=== PATIENT | female | born 1930 | race Caucasian/White ===

== ENCOUNTER → 2016-06-09 | Outpatient (CLI) | payer MEDICARE, OTHER ==
[~2016-06-09] MED LIST: ASPI81TA82 PO; AZIT250T74 PO; COZA50TA PO; LEVO75TA3 PO; LEXA10TA PO; PRAM.25 PO; PROT40TA PO
[2016-06-09 10:57] LABS: INDIRECT BILIRUBIN 0.2 MG/DL (0.0-0.8); TOTAL BILIRUBIN ADULT 0.3 MG/DL (0.2-1.0)
== END ==
LOC: CLAB 10:01
PROVIDERS: ATTEND Internal Medicine Gastroenterology
DX: R10.9 Unspecified abdominal pain (principal); R74.8 Abnormal levels of other serum enzymes
CPT/HCPCS: 36415; 80076; 82977

== ENCOUNTER 2017-03-17 12:31 | Observation (INO) | payer MEDICARE, OTHER ==
[2017-03-17 12:34] VITALS: BP 148/71; PULSE 66; RESP 22; TEMP 98.6; O2SAT 91
[2017-03-17 13:20] LABS: AUTOMATED NEUTROPHIL # 5.4 TH/MM3 (1.8-7.7); BASOPHIL # 0.1 TH/MM3 (0-0.2); BASOPHIL % 0.8 % (0.0-2.0); EOSINOPHIL # 0.2 TH/MM3 (0-0.4); EOSINOPHIL % 2.7 % (0.0-4.0); HEMATOCRIT 40.2 % (35.0-46.0); HEMO FLAGS DIFF FINAL; LYMPH % 13.2 % (9.0-44.0); LYMPHOCYTE # 0.9 TH/MM3 (1.0-4.8); MEAN CORPUSCULAR HEMOGLOBIN 29.6 PG (27.0-34.0); MEAN CORPUSCULAR HGB CONC 32.9 % (32.0-36.0); MONO % 4.2 % (0.0-8.0); NEUT % 79.1 % (16.0-70.0); PLATELET COUNT 215 TH/MM3 (150-450); RED BLOOD COUNT 4.47 MIL/MM3 (4.00-5.30); RED CELL DISTRIBUTION WIDTH 14.4 % (11.6-17.2); WHITE BLOOD COUNT 6.9 TH/MM3 (4.0-11.0)
[2017-03-17 13:28] LABS: APTT (PATIENT) 26.5 SEC (24.3-30.1); PROTHROMBIN TIME - PATIENT 10.4 SEC (9.8-11.6)
[2017-03-17 13:31] LABS: ANION GAP 5 MEQ/L (5-15); BICARBONATE 29.7 MEQ/L (21.0-32.0); BLOOD UREA NITROGEN 26 MG/DL (7-18); CHLORIDE 103 MEQ/L (98-107); GLOMERULAR FILTRATION RATE 38 ML/MIN (>89); POTASSIUM 4.2 MEQ/L (3.5-5.1); SODIUM (NA) 138 MEQ/L (136-145)
[2017-03-17 13:37] LABS: CREATINE KINASE 100 U/L (26-192)
[2017-03-17] MEDS ORDERED: methylPREDNISolone SOD SUCC 125 MG/2 ML VIAL IV PUSH ONE (13:45)
[2017-03-17] MEDS: RESP: ALBUTEROL 2.5 MG/IPRATROPIUM 0.5 MG NEB (SCH) INH (13:48)
[2017-03-17 13:54] VITALS: O2SAT 97
--- NOTE | 2017-03-17 14:11 | PD ---
HPI Chief Complaint: Respiratory Symptoms Time Seen by Provider: 13:12 Travel History International Travel<30 days: No Contact w/Intl Traveler<30days: No Traveled to known affect area: No History of Present Illness HPI 86yo F with PMH of COPD was sent in by Dr. Chaudhary for evaluation. Pt said she has been sob for a few weeks but getting worst overtime and worst today so she called her employment appeals examiner Dr. Chaudhary today. Pt uses 3L NC oxygen PRN at home but had to use it continuously and still felt sob today. Has been having chills and coughing up a lot of phlegm. Denies any fever, chest pain, n/v, abdominal pain, focal weakness or numbness. Denies any history of DVT, PE. PFSH Past Medical History Hx Anticoagulant Therapy: Yes (PLAVIX) Cancer: No Cardiovascular Problems: Yes (CAD; STENTS; HTN) High Cholesterol: Yes COPD: Yes Diabetes: No Diminished Hearing: No Endocrine: Yes Gastrointestinal Disorders: Yes (ACID REFLUX) Genitourinary: Yes (stress incontinence) Hepatitis: No Hiatal Hernia: Yes Hypertension: Yes Immune Disorder: Yes (rheumatoid) Musculoskeletal: Yes (rheumatoid ARTHRITIS) Neurologic: No Psychiatric: Yes Reproductive: No Respiratory: Yes (COPD) Thyroid Disease: Yes (HYPO) ?: Not Menopausal: Yes Past Surgical History Abdominal Surgery: Yes (partial colectomy due to diverticulitis) Body Medical Devices: x4 cardiac stents Cardiac Surgery: Yes (x 4 cardiac stents) Genitourinary Surgery: Yes (bladder tuck ) Pacemaker: No Other Surgery: Yes Social History Alcohol Use: No Tobacco Use: No Substance Use: No Allergies-Medications (Allergen,Severity, Reaction): Coded Allergies: simvastatin (Unverified Allergy, Severe, muscle pain, 11/11/16) Reported Meds & Prescriptions Reported Meds & Active Scripts Active Reported Potassium Chloride ER (Potassium Chloride) 20 Meq Tab 20 Meq PO DAILY Protonix (Pantoprazole Sodium) 40 Mg Tab 40 Mg PO DAILY Pravastatin 20 Mg Tab 20 Mg PO DAILY Prednisone 5 Mg Tab 5 Mg PO DAILY Mirapex (Pramipexole Dihydrochloride) 1 Mg Tab 1 Mg PO DAILY Cozaar (Losartan Potassium) 100 Mg Tab 100 Mg PO DAILY Plavix (Clopidogrel Bisulfate) 75 Mg Tab 75 Mg PO DAILY Coreg (Carvedilol) 3.125 Mg Tab 3.125 Mg PO BID Synthroid (Levothyroxine Sodium) 75 Mcg Tab 75 Mcg PO DAILY Zantac (Ranitidine HCl) 150 Mg Tab 150 Mg PO BID Norvasc (Amlodipine Besylate) 2.5 Mg Tab 2.5 Mg PO DAILY Zetia (Ezetimibe) 10 Mg Tab 10 Mg PO DAILY Lasix (Furosemide) 40 Mg Tab 40 Mg PO DAILY Review of Systems Except as stated in HPI: all other systems reviewed are Neg Physical Exam Narrative GENERAL: 86yo F in mild distress. SKIN: Focused skin assessment warm/dry. HEAD: Atraumatic. Normocephalic. EYES: Pupils equal and round. No scleral icterus. No injection or drainage. ENT: No nasal bleeding or discharge. Mucous membranes pink and moist. NECK: Trachea midline. No JVD. CARDIOVASCULAR: Regular rate and rhythm. No murmur appreciated. RESPIRATORY: No accessory muscle use. Clear to auscultation. Breath sounds equal bilaterally. GASTROINTESTINAL: Abdomen soft, non-tender, nondistended. MUSCULOSKELETAL: No obvious deformities. No clubbing. No cyanosis. Trace bilateral lower ext edema. NEUROLOGICAL: Awake and alert. No obvious cranial nerve deficits. Motor grossly within normal limits. Normal speech. PSYCHIATRIC: Appropriate mood and affect; insight and judgment normal. Data Data Last Documented VS Vital Signs Date Time Temp Pulse Resp B/P (MAP) Pulse Ox O2 Delivery O2 Flow Rate FiO2 03/17/17 13:54 97 Nasal Cannula 2.00 03/17/17 12:34 98.6 66 22 148/71 (96) Orders Orders Electrocardiogram (03/17/17 12:42) Basic Metabolic Panel (Bmp) (03/17/17 12:42) B-Type Natriuretic Peptide (03/17/17 12:42) Ckmb (Isoenzyme) Profile (03/17/17 12:42) Complete Blood Count With Diff (03/17/17 12:42) Magnesium (Mg) (03/17/17 12:42) Prothrombin Time / Inr (Pt) (03/17/17 12:42) Act Partial Throm Time (Ptt) (03/17/17 12:42) Troponin I (03/17/17 12:42) Lipase (03/17/17 12:42) Chest, Pa & Lat (03/17/17 12:42) Methylprednisolone So Succ Inj (Solumedr (03/17/17 13:45) Albuterol-Ipratropium Neb (Duoneb Neb) (03/17/17 13:45) Prednisone (Deltasone) (03/17/17 14:15) Blood Culture (03/17/17 15:33) Lactic Acid Sepsis Protocol (03/17/17 15:33) Ceftriaxone Inj (Rocephin Inj) (03/17/17 15:45) Azithromycin (Zithromax) (03/17/17 15:45) Place In Observation (03/17/17 ) Vital Signs (Adult) Q4H (03/17/17 16:03) Activity Oob With Assistance (03/17/17 16:03) First Line Production Supervisor / Telemetry .CONTINUOUS (03/17/17 16:03) Diet Heart Healthy (03/17/17 Dinner) Sodium Chloride 0.9% Flush (Ns Flush) (03/17/17 16:15) Sodium Chloride 0.9% Flush (Ns Flush) (03/17/17 21:00) Basic Metabolic Panel (Bmp) (03/18/17 06:00) Complete Blood Count With Diff (03/18/17 06:00) Pt Request For Service (03/17/17 16:03) Case Management Consult (03/17/17 16:03) Naloxone Inj (Narcan Inj) (03/17/17 16:15) Admit Order (Ed Use Only) (03/17/17 16:03) Labs Laboratory Tests Test 03/17/17 12:45 White Blood Count 6.9 TH/MM3 Red Blood Count 4.47 MIL/MM3 Hemoglobin 13.2 GM/DL Hematocrit 40.2 % Mean Corpuscular Volume 90.0 FL Mean Corpuscular Hemoglobin 29.6 PG Mean Corpuscular Hemoglobin Concent 32.9 % Red Cell Distribution Width 14.4 % Platelet Count 215 TH/MM3 Mean Platelet Volume 7.6 FL Neutrophils (%) (Auto) 79.1 % Lymphocytes (%) (Auto) 13.2 % Monocytes (%) (Auto) 4.2 % Eosinophils (%) (Auto) 2.7 % Basophils (%) (Auto) 0.8 % Neutrophils # (Auto) 5.4 TH/MM3 Lymphocytes # (Auto) 0.9 TH/MM3 Monocytes # (Auto) 0.3 TH/MM3 Eosinophils # (Auto) 0.2 TH/MM3 Basophils # (Auto) 0.1 TH/MM3 CBC Comment DIFF FINAL Differential Comment Prothrombin Time 10.4 SEC Prothromb Time International Ratio 1.0 RATIO Activated Partial Thromboplast Time 26.5 SEC Blood Urea Nitrogen 26 MG/DL Creatinine 1.32 MG/DL Random Glucose 155 MG/DL Calcium Level 9.5 MG/DL Magnesium Level 2.0 MG/DL Sodium Level 138 MEQ/L Potassium Level 4.2 MEQ/L Chloride Level 103 MEQ/L Carbon Dioxide Level 29.7 MEQ/L Anion Gap 5 MEQ/L Estimat Glomerular Filtration Rate 38 ML/MIN Total Creatine Kinase 100 U/L Troponin I LESS THAN 0.02 NG/ML B-Type Natriuretic Peptide 76 PG/ML Lipase 234 U/L [facility] Medical Decision Making Medical Screen Exam Complete: Yes Emergency Medical Condition: Yes Interpretation(s) EKG: NSR 64bpm. LAD. NO ST segment elevation or depression. Differential Diagnosis COPD exacerbation vs. Pneumonia vs. CHF Narrative Course 86yo F with sob for months but getting worst. Pt is saturating at 95% on 3L NC. Labs reviewed, no leukocytosis. BNP 76. BUN/creatinine elevated at 26/ 1.32 from baseline of 19/0.83. Troponin negative. CXR showed right lower lobe and right middle lobe consolidation and small right pleural effusion suspected. Pt felt a little better after steroids and duonebs but still a little tachypneic. Saturating fine on 3L NC. Blood cultures drawn, lactic acid added. Pt is 86yo with right lower and right middle lobe pneumonia and still does not feel back to normal as well as HILDA so will admit. Pt given ceftriaxone and azithromycin. Discussed with Dr. Jerry and accepted to her service. This is Dr. Chaudhary's patient and I spoke to him and he recommended a consultation to him so he can come see the patient and agrees with the plan. Diagnosis Primary Impression: Pneumonia Qualified Codes: J18.9 - Pneumonia, unspecified organism Admitting Information Admitting Physician Requests: Julita Pool DO Mar 17, 2017 14:11
[2017-03-17] MEDS ORDERED: ZANT150T2 PO (14:14)
[2017-03-17] MEDS ORDERED: PLAV75TA29 PO (14:14)
[2017-03-17] MEDS ORDERED: CARV3.125 PO (14:14)
[2017-03-17] MEDS ORDERED: POTA-163 PO (14:14)
[2017-03-17] MEDS ORDERED: PRAV20TA2 PO (14:14)
[2017-03-17] MEDS ORDERED: PRAM1 PO (14:14)
[2017-03-17] MEDS ORDERED: EZET10 PO (14:14)
[2017-03-17] MEDS ORDERED: NORV2.5T PO (14:14)
[2017-03-17] MEDS ORDERED: COZA100T PO (14:14)
[2017-03-17] MEDS ORDERED: FURO1TAB60 PO (14:14)
[2017-03-17] MEDS ORDERED: LEVO.075 PO (14:14)
[2017-03-17] MEDS ORDERED: PRED5TAB PO (14:14)
[2017-03-17] MEDS ORDERED: PROT40TA PO (14:14)
[2017-03-17] MEDS ORDERED: predniSONE 50 MG TAB PO ONE (14:15)
--- NOTE | 2017-03-17 14:50 | RADRPT ---
EXAM DATE/TIME: 03/17/2017 13:19 [facility] COMPARISON: CHEST SINGLE AP, April 04, 2013, 12:28. INDICATIONS : Chest pain. MEDICAL HISTORY : Chronic obstructive pulmonary disease. SURGICAL HISTORY : None. ENCOUNTER: Initial ACUITY: 1 week PAIN SCORE: 7/10 LOCATION: Bilateral chest FINDINGS: PA and lateral views of the chest show the heart to be normal in size and shape. Areas of consolidati on are seen involving the right lower lobe and right midlung. Small right effusion suspected. No effu joshua seen on the left. A degenerative spine. CONCLUSION: Right lower lobe infiltrate with tiny right effusion. Emilio Godoy Jr., MD on March 17, 2017 at 14:46 Board Certified Radiologist. This report was verified electronically.
[2017-03-17] MEDS ORDERED: cefTRIAXone INJ 1,000 MG in SODIUM CHLORIDE 0.9% INJ 100 ML IV ONE (15:45)
[2017-03-17] MEDS ORDERED: AZITHROMYCIN 250 MG TAB PO ONE (15:45)
[2017-03-17] MEDS ORDERED: RESP: ALBUTEROL 2.5 MG/IPRATROPIUM 0.5 MG NEB (PRN) NEB (16:15)
[2017-03-17] MEDS ORDERED: SODIUM CHLORIDE 0.9% FLUSH 10 ML FLUSH IV FLUSH PRN (16:15)
[2017-03-17] MEDS ORDERED: NALOXONE HCL 0.4 MG/ML AMP IV PUSH PRN (16:15)
[2017-03-17] MEDS ORDERED: LEVOFLOXACIN 750 MG PREMIX INJ 150 ML IV SCH (17:00)
[2017-03-17] MEDS ORDERED: PILL SPLITTER OTHER PRN (17:30)
--- NOTE | 2017-03-17 17:41 | MB ---
cc: Paulina HARRINGTON M.D. DATE OF CONSULTATION 03/17/2017 HISTORY Ms. Martinez is an 86-year-old white female whom I know from my outpatient office. I have followed her with chronic interstitial lung disease for a number of years. She has really been very stable although very gradually progressing with more debility partly related to dyspnea but also related to significant degenerative arthritis which has slowed her down and the last visit in the office was stable. She has had fairly recent scans and pulmonary functions which revealed restrictive disease but not significantly progressed. She called the office today though with cough, increasing shortness of breath, congestion, really felt miserable and I was concerned that she may have pneumonia, so I brought her into the emergency room. Her chest x-ray does in fact reveal a right mid to lower lobe infiltrate with a small effusion. O2 saturations were in the low 90s. She was afebrile. White count was 6900 but her BUN and creatinine are both bumped and she is fairly debilitated. She is being admitted for initial therapy. PAST MEDICAL HISTORY 1. She does have a cardiovascular history with coronary artery disease and prior stents. 2. She has a history of hypertension. 3. Acid reflux disease which has not been very symptomatic recently. 4. Rheumatoid arthritis which has gradually progressed along with degenerative arthritis. She is managed as an outpatient by a pain specialist. 5. Hypothyroidism. 6. Partial colectomy due to diverticulitis. 7. Multiple cardiac stents. 8. Bladder neck repair in the past. SOCIAL HISTORY She lives alone. She manages her own affairs. She does not smoke. Rarely drinks alcohol. She does have family in [place], in fact she was planning on spending the [place] holidays with her daughter there. ALLERGIES SIMVASTATIN. MEDICATIONS Reviewed in the EMR. REVIEW OF SYSTEMS She has had cough, congestion but no chest pain or hemoptysis. Feeling more debilitated, unable to manage things at home alone with this most recent illness. No shaking chills. No vomiting. No abdominal pain. No recent change in bowel habits. No increased edema in her legs. PHYSICAL EXAMINATION GENERAL: The patient is awake, alert, sitting upright, comfortable. VITAL SIGNS: Afebrile, blood pressure 140/70, pulse 70, respirations 18-22, room air saturation 91, 97% on 2 liters. HEENT: Sclerae anicteric. Mucous membranes are a little dry. NECK: The neck veins are flat. CHEST: Congested with basilar rales right greater than left. No wheezing. Regular rhythm. No harsh murmur. ABDOMEN: Soft, a little overweight. EXTREMITIES: No peripheral edema or calf tenderness. No cyanosis. DISCUSSION Mrs. Martinez presents with chronic interstitial disease, really no significant underlying COPD but clearly has new right mid to lower lung infiltrate. She is being admitted. Antibiotics have been ordered. We will try to collect sputum. Blood cultures have been done. We will give her aerosol treatments only as needed and a short course of IV steroids for the inflammatory response. Further diagnostic and/or therapeutic intervention will depend on her ongoing clinical response. R. MD VELMA Hauser/KK /5:08 PM /5:23 PM
[2017-03-17] MEDS: methylPREDNISolone SOD SUCC 40 MG/1 ML VIAL IV PUSH SCH ×2 (17:56→23:47)
[2017-03-17 18:03] VITALS: BP 138/70; PULSE 82; RESP 20; O2SAT 97
--- NOTE | 2017-03-17 18:23 | HHI.HP ---
[facility] Jamie Patterson MD Admission Diagnosis Right middle and lower lobe pneumonia Diagnoses: Travel History International Travel<30 Days: No Contact w/Intl Traveler <30 Da: No Traveled to Known Affected Are: No History of Present Illness shortness of breath stated no cough but then had mucus no fever, but was having hot and cold chills mucus plain white color symptoms a week no nasuea/ vomiting . no urinary symptoms have been constipated - comes and goes and improve with laxatives hx of copd on home oxygen 3L today symptoms was so bad that she has been using it more often and all day long Review of Systems Except as stated in HPI: all other systems reviewed are Neg Past Family Social History Past Medical History htn border line dm copd cad- 4 stents,. TN hypothryoidism Past Surgical History part of intestine removed for diverticulosis tonsilectomy Allergies: Coded Allergies: simvastatin (Unverified Allergy, Severe, muscle pain, 11/11/16) Family History breast cancer- both sisters Social History quit smoking 40yrs ago no etoh abuse no drugs lives by herself, still driving Physical Exam Vital Signs Vital Signs Date Time Temp Pulse Resp B/P (MAP) Pulse Ox O2 Delivery O2 Flow Rate FiO2 03/17/17 18:03 82 20 138/70 (92) 97 Nasal Cannula 3.00 03/17/17 13:54 97 Nasal Cannula 2.00 03/17/17 12:34 98.6 66 22 148/71 (96) 91 Room Air Physical Exam GENERAL: This is a well-nourished, well-developed patient, in no apparent distress. SKIN: No rashes, ecchymoses or lesions. Cool and dry. HEAD: Atraumatic. Normocephalic. No temporal or scalp tenderness. EYES: Pupils equal round and reactive. Extraocular motions intact. No scleral icterus. No injection or drainage. ENT: Nose without bleeding, purulent drainage or septal hematoma. Throat without erythema, tonsillar hypertrophy or exudate. Uvula midline. Airway patent. NECK: Trachea midline. No JVD or lymphadenopathy. Supple, nontender, no meningeal signs. CARDIOVASCULAR: Regular rate and rhythm without murmurs, gallops, or rubs. RESPIRATORY: Clear to auscultation. Breath sounds equal bilaterally. No wheezes , rales, or rhonchi. GASTROINTESTINAL: Abdomen soft, non-tender, nondistended. No hepato-splenomegaly , or palpable masses. No guarding. MUSCULOSKELETAL: Extremities without clubbing, cyanosis, or edema. No joint tenderness, effusion, or edema noted. No calf tenderness. Negative Homans sign bilaterally. NEUROLOGICAL: Awake and alert. Cranial nerves II through XII intact. Motor and sensory grossly within normal limits. Five out of 5 muscle strength in all muscle groups. Normal speech. Laboratory Laboratory Tests Test 03/17/17 12:45 03/17/17 16:11 White Blood Count 6.9 Red Blood Count 4.47 Hemoglobin 13.2 Hematocrit 40.2 Mean Corpuscular Volume 90.0 Mean Corpuscular Hemoglobin 29.6 Mean Corpuscular Hemoglobin Concent 32.9 Red Cell Distribution Width 14.4 Platelet Count 215 Mean Platelet Volume 7.6 Neutrophils (%) (Auto) 79.1 Lymphocytes (%) (Auto) 13.2 Monocytes (%) (Auto) 4.2 Eosinophils (%) (Auto) 2.7 Basophils (%) (Auto) 0.8 Neutrophils # (Auto) 5.4 Lymphocytes # (Auto) 0.9 Monocytes # (Auto) 0.3 Eosinophils # (Auto) 0.2 Basophils # (Auto) 0.1 CBC Comment DIFF FINAL Differential Comment Prothrombin Time 10.4 Prothromb Time International Ratio 1.0 Activated Partial Thromboplast Time 26.5 Blood Urea Nitrogen 26 Creatinine 1.32 Random Glucose 155 Calcium Level 9.5 Magnesium Level 2.0 Sodium Level 138 Potassium Level 4.2 Chloride Level 103 Carbon Dioxide Level 29.7 Anion Gap 5 Estimat Glomerular Filtration Rate 38 Total Creatine Kinase 100 Troponin I LESS THAN 0.02 B-Type Natriuretic Peptide 76 Lipase 234 Lactic Acid Level 1.1 Date/Time Source Procedure Growth Status 03/17/17 16:15 Blood Peripheral Aerobic Blood Culture Pending Received 03/17/17 16:15 Blood Peripheral Anaerobic Blood Culture Pending Received Result Diagram: 03/17/17 1245 03/17/17 1245 Caprini VTE Risk Assessment Caprini Risk Assessment Model Point Value = 1 Point Value = 2 Point Value = 3 Point Value = 5 Age 41-60 Minor surgery BMI > 25 kg/m2 Swollen legs Varicose veins or History of unexplained or recurrent spontaneous Oral contraceptives or hormone replacement Sepsis (< 1 month) Serious lung disease, including pneumonia (< 1 month) Abnormal pulmonary function Acute myocardial infarction Congestive heart failure (< 1 month) History of inflammatory bowel disease Medical patient at bed rest Age 61-74 Arthroscopic surgery Major open surgery (> 45 min) Laparoscopic surgery (> 45 min) Malignancy Confined to bed (> 72 hours) Immobilizing plaster cast Central venous access Age >= 75 History of VTE Family history of VTE Factor V Leiden Prothrombin [id number] Lupus anticoagulant Anticardiolipin antibodies Elevated serum homocysteine Heparin-induced thrombocytopenia Other congenital or acquired thrombophilia Stroke (< 1 month) Elective arthroplasty Hip, pelvis, or leg fracture Acute spinal cord injury (< 1 month) Prophylaxis Regimen Total Risk Factor Score Risk Level Prophylaxis Regimen 0-1 Low Early ambulation 2 Moderate Order ONE of the following: *Sequential Compression Device (SCD) *Heparin 5000 units SQ BID 3-4 Higher Order ONE of the following medications: *Heparin 5000 units SQ TID *Enoxaparin/Lovenox 40 mg SQ daily (WT < 150 kg, CrCl > 30 mL/min) *Enoxaparin/Lovenox 30 mg SQ daily (WT < 150 kg, CrCl > 10-29 mL/min) *Enoxaparin/Lovenox 30 mg SQ BID (WT < 150 kg, CrCl > 30 mL/min) AND/OR *Sequential Compression Device (SCD) 5 or more Highest Order ONE of the following medications: *Heparin 5000 units SQ TID (Preferred with Epidurals) *Enoxaparin/Lovenox 40 mg SQ daily (WT < 150 kg, CrCl > 30 mL/min) *Enoxaparin/Lovenox 30 mg SQ daily (WT < 150 kg, CrCl > 10-29 mL/min) *Enoxaparin/Lovenox 30 mg SQ BID (WT < 150 kg, CrCl > 30 mL/min) AND *Sequential Compression Device (SCD) Assessment and Plan Assessment and Plan interstitial lung disease pneumonia home oxygen dependence respiratory distress secondary to pneumonia nebs prn steroids short course then to taper levofloxacin iv Paula Jerry MD Mar 17, 2017 18:23
[2017-03-17 20:00] VITALS: BP 144/65; PULSE 66; RESP 22; TEMP 96.1; O2SAT 94
[2017-03-17] MEDS: FAMOTIDINE 20 MG TAB PO SCH (20:34)
[2017-03-17] MEDS: CARVEDILOL 3.125 MG TAB PO SCH (20:34)
[2017-03-17] MEDS: SODIUM CHLORIDE 0.9% FLUSH 10 ML FLUSH IV FLUSH SCH (20:35)
[2017-03-17] MEDS: RESP: ALBUTEROL 2.5 MG/IPRATROPIUM 0.5 MG NEB (SCH) NEB (20:36)
[2017-03-17 20:40] VITALS: O2SAT 94
--- NOTE | 2017-03-17 20:58 | EKG ---
Date Performed: 03/17/2017 Time Performed: 12:52:22 PTAGE: 86 years EKG: Sinus rhythm POSSIBLE LEFT ATRIAL ENLARGEMENT BORDERLINE LEFT AXIS DEVIATION INCOMPLETE RIGHT BUNDLE BRANCH BLOCK NONSPECIFIC T-WAVE ABNORMALITY BORDERLINE ECG Compared to prior electrocardiogram, Nonspecific T wav e changes are now present . PREVIOUS TRACING : 03/31/2013 11.51 DOCTOR: Lan Yates Interpretating Date/Time 03/17/2017 20:57:18
[2017-03-17] MEDS ORDERED: FAMOTIDINE 20 MG TAB PO SCH (21:00)
[2017-03-18] VITALS (11 sets, daily range): BP systolic 124–161; BP diastolic 56–71; PULSE 57–83; RESP 16–22; TEMP 96–97.6; O2SAT 93–99
[2017-03-18] MEDS: RESP: ALBUTEROL 2.5 MG/IPRATROPIUM 0.5 MG NEB (SCH) NEB ×4 (03:43→23:41)
[2017-03-18] MEDS: methylPREDNISolone SOD SUCC 40 MG/1 ML VIAL IV PUSH SCH ×3 (05:44→20:21)
[2017-03-18] MEDS: LEVOTHYROXINE SODIUM 75 MCG TAB PO SCH (08:25)
[2017-03-18] MEDS: amLODIPine BESYLATE 5 MG TAB PO SCH (08:25)
[2017-03-18] MEDS: CARVEDILOL 3.125 MG TAB PO SCH ×2 (08:25→20:21)
[2017-03-18] MEDS: PRAMIPEXOLE DIHYDROCHLORIDE 1 MG TAB PO SCH (08:26)
[2017-03-18] MEDS: EZETIMIBE 10 MG TAB PO SCH (08:26)
[2017-03-18] MEDS: CLOPIDOGREL 75 MG TAB PO SCH (08:26)
[2017-03-18] MEDS: LOSARTAN 50 MG TAB PO SCH (08:26)
[2017-03-18] MEDS: PRAVASTATIN SOD 20 MG TAB PO SCH (08:26)
[2017-03-18] MEDS: POTASSIUM CHLORIDE 20 MEQ CONTROLLED RELEASE TAB PO SCH (08:26)
[2017-03-18] MEDS: FAMOTIDINE 20 MG TAB PO SCH (08:26)
[2017-03-18] MEDS: PANTOPRAZOLE SOD 40 MG DELAYED RELEASE TAB PO SCH (08:27)
[2017-03-18] MEDS: SODIUM CHLORIDE 0.9% FLUSH 10 ML FLUSH IV FLUSH SCH ×2 (08:28→21:00)
[2017-03-18] MEDS ORDERED: FUROSEMIDE 40 MG TAB PO SCH (09:00)
[2017-03-18] MEDS ORDERED: predniSONE 5 MG TAB PO SCH (09:00)
[2017-03-18 12:15] LABS: AUTOMATED NEUTROPHIL # 5.1 TH/MM3 (1.8-7.7); HEMO FLAGS DIFF FINAL; LYMPH % 11.9 % (9.0-44.0); LYMPHOCYTE # 0.7 TH/MM3 (1.0-4.8); MEAN CORPUSCULAR HEMOGLOBIN 30.1 PG (27.0-34.0); MONO % 1.7 % (0.0-8.0); NEUT % 86.4 % (16.0-70.0); PLATELET COUNT 215 TH/MM3 (150-450); RED BLOOD COUNT 4.07 MIL/MM3 (4.00-5.30); RED CELL DISTRIBUTION WIDTH 14.4 % (11.6-17.2); WHITE BLOOD COUNT 5.9 TH/MM3 (4.0-11.0)
--- NOTE | 2017-03-18 12:39 | HHI.PR ---
Subjective Remarks The patient was resting comfortably in a chair. She had questions about her lung disease. She said she had some swelling in her lower extremities. She said she worked with physical therapy. Objective Vitals Vital Signs Date Time Temp Pulse Resp B/P (MAP) Pulse Ox O2 Delivery O2 Flow Rate FiO2 03/18/17 09:41 97 Nasal Cannula 3.00 03/18/17 08:00 97.6 63 16 143/70 (94) 96 03/18/17 06:00 96.0 64 20 160/71 (100) 94 03/18/17 00:00 97.5 57 20 124/56 (78) 93 03/17/17 20:40 94 Nasal Cannula 3.00 03/17/17 20:00 96.1 66 22 144/65 (91) 94 03/17/17 19:02 03/17/17 18:03 82 20 138/70 (92) 97 Nasal Cannula 3.00 03/17/17 13:54 97 Nasal Cannula 2.00 I/O 03/17/17 03/17/17 03/17/17 03/18/17 03/18/17 03/18/17 07:00 15:00 23:00 07:00 15:00 23:00 Intake Total 100 ml 360 ml Output Total 350 ml Balance 100 ml 10 ml Intake Oral 360 ml IV Total 100 ml Output Urine Total 350 ml # Bowel Movements 0 Result Diagram: 03/18/17 1037 03/17/17 1245 Imaging Last Impressions Chest X-Ray 03/17/17 1242 Signed Impressions: Service Date/Time: Friday, March 17, 2017 13:19 - CONCLUSION: Right lower lobe infiltrate with tiny right effusion. Emilio oGdoy Jr., MD Objective Remarks GENERAL: This is a well-nourished, well-developed patient, in no apparent distress. SKIN: No rashes, ecchymoses or lesions. Cool and dry. HEAD: Atraumatic. Normocephalic. No temporal or scalp tenderness. EYES: Pupils equal round and reactive. Extraocular motions intact. No scleral icterus. No injection or drainage. ENT: Nose without bleeding, purulent drainage or septal hematoma. Throat without erythema, tonsillar hypertrophy or exudate. Uvula midline. Airway patent. NECK: Trachea midline. No JVD or lymphadenopathy. Supple, nontender, no meningeal signs. CARDIOVASCULAR: Regular rate and rhythm without murmurs, gallops, or rubs. RESPIRATORY: Clear to auscultation. Breath sounds equal bilaterally. No wheezes , rales, or rhonchi. GASTROINTESTINAL: Abdomen soft, non-tender, nondistended. No hepato-splenomegaly , or palpable masses. No guarding. MUSCULOSKELETAL: Extremities without clubbing, cyanosis, or edema. No joint tenderness, effusion, or edema noted. NEUROLOGICAL: Awake and alert. Cranial nerves II through XII intact. Motor and sensory grossly within normal limits. Five out of 5 muscle strength in all muscle groups. Normal speech. PSYCH: Mood and affect appropriate. Medications and IVs Current Medications Medications (Trade) Dose Ordered Sig/Sierra Route Start Time Stop Time Status Last Admin (NS Flush) 2 ml UNSCH PRN IV FLUSH 03/17/17 16:15 (NS Flush) 2 ml BID IV FLUSH 03/17/17 21:00 03/18/17 08:28 (Narcan Inj) 0.4 mg UNSCH PRN IV PUSH 03/17/17 16:15 (Duoneb Neb) 1 ampule Q6HR NEB NEB 03/17/17 22:00 03/18/17 09:40 (Duoneb Neb) 1 ampule Q2HR NEB PRN NEB 03/17/17 16:15 (SoluMEDROL INJ) 40 mg Q6HR IV PUSH 03/17/17 18:00 03/18/17 12:20 Levofloxacin/ Dextrose 150 ml @ 100 mls/hr Q24H IV 03/17/17 17:00 03/17/17 17:55 (Pill Splitter) 1 ea UNSCH PRN OTHER 03/17/17 17:30 (Norvasc) 2.5 mg DAILY PO 03/18/17 09:00 03/18/17 08:25 (Coreg) 3.125 mg BID PO 03/17/17 21:00 03/18/17 08:25 (Plavix) 75 mg DAILY PO 03/18/17 09:00 03/18/17 08:26 (Zetia) 10 mg DAILY PO 03/18/17 09:00 03/18/17 08:26 (Lasix) 40 mg DAILY PO 03/18/17 09:00 03/18/17 08:26 (Synthroid) 75 mcg DAILY PO 03/18/17 09:00 03/18/17 08:25 (Cozaar) 100 mg DAILY PO 03/18/17 09:00 03/18/17 08:26 (Protonix) 40 mg DAILY PO 03/18/17 09:00 (KCl) 20 meq DAILY PO 03/18/17 09:00 03/18/17 08:26 (Mirapex) 1 mg DAILY PO 03/18/17 09:00 03/18/17 08:26 (Pravachol) 20 mg DAILY PO 03/18/17 09:00 03/18/17 08:26 (Pepcid) 20 mg DAILY PO 03/17/17 21:00 03/18/17 08:26 A/P Assessment and Plan Interstitial lung disease/ Pneumonia - the pt has home oxygen dependence. - continue antibiotics (Levaquin IV). - encourage ambulation. - IS. - nebs prn - steroids short course then to taper. Acute renal failure Likely s/t Lasix. - IVFs and monitor. - hold Lasix and ARB. DM Borderline. - insulin sliding scale. - wean steroids. HTN BP varies. - holding Lasix and ARB as above. - clonidine as needed. - resume other home meds. Discharge Planning Anticipate d/c home in 1-2 days Michael Valenzuela DO Mar 18, 2017 12:39
[2017-03-18 12:45] LABS: BICARBONATE 28.4 MEQ/L (21.0-32.0); POTASSIUM 3.9 MEQ/L (3.5-5.1)
[2017-03-18] MEDS ORDERED: cloNIDine HCL 0.1 MG TAB PO PRN (13:15)
[2017-03-18] MEDS ORDERED: DEXTROSE 50% IN WATER 50 ML VIAL(D50) IV PUSH PRN (14:45)
[2017-03-18] MEDS ORDERED: GLUCAGON 1 MG/ML VIAL OTHER PRN (14:45)
[2017-03-18] MEDS: HEPARIN SODIUM - SQ 10,000 UNITS/ML VIAL SQ SCH ×2 (15:45→22:00)
[2017-03-18] MEDS: SODIUM CHLOR 0.9% 1000 ML INJ 1,000 ML IV SCH (15:45)
[2017-03-18] MEDS: INSULIN ASPART SUPPLEMENTAL SCALE SQ SCH ×2 (17:53→20:39)
--- NOTE | 2017-03-18 18:18 | HHI.PR ---
Subjective Remarks alert no sob appetite good Objective Vital Signs Date Time Temp Pulse Resp B/P (MAP) Pulse Ox O2 Delivery O2 Flow Rate FiO2 03/18/17 18:00 96.5 68 16 161/65 (97) 93 03/18/17 12:00 96.6 64 16 132/56 (81) 93 03/18/17 09:41 97 Nasal Cannula 3.00 03/18/17 08:00 97.6 63 16 143/70 (94) 96 03/18/17 06:00 96.0 64 20 160/71 (100) 94 03/18/17 00:00 97.5 57 20 124/56 (78) 93 03/17/17 20:40 94 Nasal Cannula 3.00 03/17/17 20:00 96.1 66 22 144/65 (91) 94 03/17/17 19:02 I/O 03/17/17 03/17/17 03/17/17 03/18/17 03/18/17 03/18/17 07:00 15:00 23:00 07:00 15:00 23:00 Intake Total 100 ml 360 ml 480 ml Output Total 350 ml 450 ml Balance 100 ml 10 ml 30 ml Intake Oral 360 ml 480 ml IV Total 100 ml Output Urine Total 350 ml 450 ml # Bowel Movements 0 1 Result Diagram: 03/18/17 1037 03/18/17 1037 Objective Remarks GENERAL: SKIN: Warm and dry. HEAD: Atraumatic. Normocephalic. EYES: Pupils equal and round. No scleral icterus. No injection or drainage. ENT: No nasal bleeding or discharge. Mucous membranes pink and moist. NECK: Trachea midline. No JVD. CARDIOVASCULAR: Regular rate and rhythm. RESPIRATORY: No accessory muscle use. Clear to auscultation. Breath sounds equal bilaterally. GASTROINTESTINAL: Abdomen soft, non-tender, nondistended. Hepatic and splenic margins not palpable. MUSCULOSKELETAL: Extremities without clubbing, cyanosis, or edema. No obvious deformities. NEUROLOGICAL: Awake and alert. No obvious cranial nerve deficits. Motor grossly within normal limits. Five out of 5 muscle strength in the arms and legs. Normal speech. PSYCHIATRIC: Appropriate mood and affect; insight and judgment normal. Assessment and Plan Assessment and Plan RML PNA PULM FIBROSIS RESPIRATORY FAILURE ON HOME O2 PLAN O2 ANTIBIOTICS F/U CXKiah Garcia MD Mar 18, 2017 18:18
--- NOTE | 2017-03-18 23:34 | RADRPT ---
EXAM DATE/TIME: 03/18/2017 20:50 [facility] COMPARISON: CHEST SINGLE AP, April 04, 2013, 12:28. CHEST PA & LAT, March 17, 2017, 13:19. INDICATIONS : Pneumonia, cough. MEDICAL HISTORY : None. SURGICAL HISTORY : None. ENCOUNTER: Initial ACUITY: 3 days PAIN SCORE: 0/10 LOCATION: Bilateral chest FINDINGS: Patchy infiltrates are seen scattered throughout the right lung, very similar to prior chest x-ray . There are also some central infiltrates in the left lung which have similar distribution to prior exam. Left hemidiaphragm is well delineated. There is blunting of the right costophrenic angl e, similar to prior. The heart is upper limits normal size for AP technique. CONCLUSION: Persistent patchy infiltrates in both lungs, right greater than left and probable associated right pl eural effusion. Emilio Louise MD on March 18, 2017 at 23:30 Board Certified Radiologist. This report was verified electronically.
[2017-03-19] VITALS (7 sets, daily range): BP systolic 124–146; BP diastolic 63–70; PULSE 54–76; RESP 16–22; TEMP 96.5–97.1; O2SAT 94–96
[2017-03-19] MEDS ORDERED: diphenhydrAMINE HCL 25 MG CAP PO ONE
[2017-03-19] MEDS: guaiFENesin E.R. 600 MG TAB PO SCH ×3 (00:20→22:45)
[2017-03-19] MEDS: SODIUM CHLOR 0.9% 1000 ML INJ 1,000 ML IV SCH (02:35)
[2017-03-19] MEDS: RESP: ALBUTEROL 2.5 MG/IPRATROPIUM 0.5 MG NEB (SCH) NEB ×4 (03:08→21:42)
[2017-03-19] MEDS: HEPARIN SODIUM - SQ 10,000 UNITS/ML VIAL SQ SCH ×3 (06:30→23:09)
[2017-03-19] MEDS: methylPREDNISolone SOD SUCC 40 MG/1 ML VIAL IV PUSH SCH (08:16)
[2017-03-19] MEDS: amLODIPine BESYLATE 5 MG TAB PO SCH (08:16)
[2017-03-19] MEDS: PRAVASTATIN SOD 20 MG TAB PO SCH (08:16)
[2017-03-19] MEDS: PANTOPRAZOLE SOD 40 MG DELAYED RELEASE TAB PO SCH (08:17)
[2017-03-19] MEDS: FAMOTIDINE 20 MG TAB PO SCH (08:17)
[2017-03-19] MEDS: EZETIMIBE 10 MG TAB PO SCH (08:18)
[2017-03-19] MEDS: LOSARTAN 50 MG TAB PO SCH (08:18)
[2017-03-19] MEDS: PRAMIPEXOLE DIHYDROCHLORIDE 1 MG TAB PO SCH (08:18)
[2017-03-19] MEDS: CARVEDILOL 3.125 MG TAB PO SCH ×2 (08:18→22:45)
[2017-03-19] MEDS: SODIUM CHLORIDE 0.9% FLUSH 10 ML FLUSH IV FLUSH SCH ×2 (08:18→21:00)
[2017-03-19] MEDS: POTASSIUM CHLORIDE 20 MEQ CONTROLLED RELEASE TAB PO SCH (08:18)
[2017-03-19] MEDS: INSULIN ASPART SUPPLEMENTAL SCALE SQ SCH ×4 (08:19→23:10)
[2017-03-19] MEDS: CLOPIDOGREL 75 MG TAB PO SCH (08:19)
[2017-03-19] MEDS: LEVOTHYROXINE SODIUM 75 MCG TAB PO SCH (08:22)
[2017-03-19] MEDS ORDERED: BENZOCAINE 6 MG/MENTHOL 10 MG LOZENGE BUCCAL PRN (11:30)
[2017-03-19] MEDS ORDERED: PHENOL 1.4% SOLN 180 ML BTL OROPHARYNG PRN (11:30)
--- NOTE | 2017-03-19 11:39 | HHI.PR ---
Subjective Remarks The patient was complaining of a sore throat on the right side. She said she thought it was secondary to mucus. She was wondering about when she can go home. No other acute complaints. Discussed with nursing at the bedside. Objective Vitals Vital Signs Date Time Temp Pulse Resp B/P (MAP) Pulse Ox O2 Delivery O2 Flow Rate FiO2 03/19/17 09:56 95 Nasal Cannula 3.00 03/19/17 08:00 97.1 65 16 124/64 (84) 94 03/19/17 00:00 96.9 66 22 146/63 (90) 94 03/18/17 23:41 99 Nasal Cannula 3.00 03/18/17 20:40 83 03/18/17 20:00 96.6 79 22 139/65 (89) 95 03/18/17 18:00 96.5 68 16 161/65 (97) 93 03/18/17 15:49 75 03/18/17 12:00 96.6 64 16 132/56 (81) 93 03/18/17 11:50 63 I/O 03/18/17 03/18/17 03/18/17 03/19/17 03/19/17 03/19/17 07:00 15:00 23:00 07:00 15:00 23:00 Intake Total 360 ml 480 ml 360 ml Output Total 350 ml 450 ml 175 ml Balance 10 ml 30 ml 185 ml Intake Oral 360 ml 480 ml 360 ml Output Urine Total 350 ml 450 ml 175 ml # Voids 1 # Bowel Movements 0 1 1 Result Diagram: 03/18/17 1037 03/18/17 1037 Imaging Last Impressions Chest X-Ray 03/18/17 0000 Signed Impressions: Service Date/Time: Saturday, March 18, 2017 20:50 - CONCLUSION: Persistent patchy infiltrates in both lungs, right greater than left and probable associated right pleural effusion. Emilio Louise MD Objective Remarks GENERAL: This is a well-nourished, well-developed patient, in no apparent distress. SKIN: No rashes, ecchymoses or lesions. Cool and dry. HEAD: Atraumatic. Normocephalic. No temporal or scalp tenderness. EYES: Pupils equal round and reactive. Extraocular motions intact. No scleral icterus. No injection or drainage. ENT: Nose without bleeding, purulent drainage or septal hematoma. Throat without erythema, tonsillar hypertrophy or exudate. Uvula midline. Airway patent. NECK: Trachea midline. No JVD or lymphadenopathy. Supple, nontender, no meningeal signs. No masses. CARDIOVASCULAR: Regular rate and rhythm without murmurs, gallops, or rubs. RESPIRATORY: Clear to auscultation. Breath sounds equal bilaterally. No wheezes , rales, or rhonchi. GASTROINTESTINAL: Abdomen soft, non-tender, nondistended. No hepato-splenomegaly , or palpable masses. No guarding. MUSCULOSKELETAL: Extremities without clubbing, cyanosis, or edema. No joint tenderness, effusion, or edema noted. NEUROLOGICAL: Awake and alert. Cranial nerves II through XII intact. Motor and sensory grossly within normal limits. Five out of 5 muscle strength in all muscle groups. Normal speech. PSYCH: Mood and affect appropriate. Medications and IVs Current Medications Medications (Trade) Dose Ordered Sig/Sierra Route Start Time Stop Time Status Last Admin (NS Flush) 2 ml UNSCH PRN IV FLUSH 03/17/17 16:15 (NS Flush) 2 ml BID IV FLUSH 03/17/17 21:00 03/19/17 08:18 (Narcan Inj) 0.4 mg UNSCH PRN IV PUSH 03/17/17 16:15 (Duoneb Neb) 1 ampule Q6HR NEB NEB 03/17/17 22:00 03/19/17 09:56 (Duoneb Neb) 1 ampule Q2HR NEB PRN NEB 03/17/17 16:15 (Pill Splitter) 1 ea UNSCH PRN OTHER 03/17/17 17:30 03/19/17 08:22 (Norvasc) 2.5 mg DAILY PO 03/18/17 09:00 03/19/17 08:16 (Coreg) 3.125 mg BID PO 03/17/17 21:00 03/19/17 08:18 (Plavix) 75 mg DAILY PO 03/18/17 09:00 03/19/17 08:19 (Zetia) 10 mg DAILY PO 03/18/17 09:00 03/19/17 08:18 (Synthroid) 75 mcg DAILY PO 03/18/17 09:00 03/19/17 08:22 (Cozaar) 100 mg DAILY PO 03/18/17 09:00 03/19/17 08:18 (Protonix) 40 mg DAILY PO 03/18/17 09:00 (KCl) 20 meq DAILY PO 03/18/17 09:00 03/19/17 08:18 (Mirapex) 1 mg DAILY PO 03/18/17 09:00 03/19/17 08:18 (Pravachol) 20 mg DAILY PO 03/18/17 09:00 03/19/17 08:16 (Pepcid) 20 mg DAILY PO 03/17/17 21:00 03/19/17 08:17 Sodium Chloride 1,000 ml @ 75 mls/hr [id number] IV 03/18/17 13:15 03/19/17 15:54 03/18/17 15:45 (NovoLOG SUPPLEMENTAL SCALE) 1 ACHS SLIDING SCALE SQ 03/18/17 17:00 03/19/17 08:19 (SoluMEDROL INJ) 40 mg BID IV PUSH 03/18/17 21:00 03/19/17 08:16 (Catapres) 0.1 mg Q6H PRN PO 03/18/17 13:15 (Heparin Inj) 5,000 units Q8HR SQ 03/18/17 14:00 03/19/17 06:30 (D50w (Vial) Inj) 50 ml UNSCH PRN IV PUSH 03/18/17 14:45 (Glucagon Inj) 1 mg UNSCH PRN OTHER 03/18/17 14:45 Levofloxacin/ Dextrose 150 ml @ 100 mls/hr Q48H IV 03/19/17 18:00 (Mucinex Er) 600 mg BID PO 03/19/17 00:00 03/19/17 08:18 A/P Assessment and Plan Interstitial lung disease/ Pneumonia The pt has home oxygen dependence. Repeat CXR shows persistent patchy infiltrates in both lungs, right greater than left and probable associated right pleural effusion. Pulmonology consult appreciated. - continue antibiotics (Levaquin IV). - encourage ambulation. - IS. - nebs prn - steroids changed to prednisone. - follow up with pulmonology. Sore throat Exam unremarkable. The pt believes it's s/t mucus. - chloropeptic lozenges and spray as needed. - Mucinex. Acute renal failure Likely s/t Lasix. - IVFs and monitor. - hold Lasix and ARB. DM Borderline. - insulin sliding scale. - wean steroids. HTN BP varies. - holding Lasix and ARB as above. - clonidine as needed. - resume other home meds. PPx: SCDs Discharge Planning Anticipate d/c home in 1-2 days Michael Valenzuela DO Mar 19, 2017 11:39
[2017-03-19 15:27] LABS: BICARBONATE 28.8 MEQ/L (21.0-32.0); POTASSIUM 4.2 MEQ/L (3.5-5.1)
[2017-03-19] MEDS ORDERED: LEVOFLOXACIN 750 MG PREMIX INJ 150 ML IV SCH (18:00)
--- NOTE | 2017-03-19 18:33 | HHI.PR ---
Subjective Remarks alert no sob appetite good Objective Vital Signs Date Time Temp Pulse Resp B/P (MAP) Pulse Ox O2 Delivery O2 Flow Rate FiO2 03/19/17 16:00 96.5 62 18 142/70 (94) 94 03/19/17 12:00 76 03/19/17 12:00 97.0 65 18 143/69 (93) 94 03/19/17 12:00 94 Humidified 3.00 03/19/17 09:56 95 Nasal Cannula 3.00 03/19/17 08:00 54 03/19/17 08:00 97.1 65 16 124/64 (84) 94 03/19/17 08:00 94 Nasal Cannula 3.00 Humidified 03/19/17 00:00 96.9 66 22 146/63 (90) 94 03/18/17 23:41 99 Nasal Cannula 3.00 03/18/17 20:40 83 03/18/17 20:00 96.6 79 22 139/65 (89) 95 I/O 03/18/17 03/18/17 03/18/17 03/19/17 03/19/17 03/19/17 07:00 15:00 23:00 07:00 15:00 23:00 Intake Total 360 ml 480 ml 360 ml 1000 ml Output Total 350 ml 450 ml 175 ml Balance 10 ml 30 ml 185 ml 1000 ml Intake Oral 360 ml 480 ml 360 ml IV Total 1000 ml Output Urine Total 350 ml 450 ml 175 ml # Voids 1 # Bowel Movements 0 1 1 Result Diagram: 03/18/17 1037 03/19/17 1419 Objective Remarks GENERAL: SKIN: Warm and dry. HEAD: Atraumatic. Normocephalic. EYES: Pupils equal and round. No scleral icterus. No injection or drainage. ENT: No nasal bleeding or discharge. Mucous membranes pink and moist. NECK: Trachea midline. No JVD. CARDIOVASCULAR: Regular rate and rhythm. RESPIRATORY: No accessory muscle use. Clear to auscultation. Breath sounds equal bilaterally. GASTROINTESTINAL: Abdomen soft, non-tender, nondistended. Hepatic and splenic margins not palpable. MUSCULOSKELETAL: Extremities without clubbing, cyanosis, or edema. No obvious deformities. NEUROLOGICAL: Awake and alert. No obvious cranial nerve deficits. Motor grossly within normal limits. Five out of 5 muscle strength in the arms and legs. Normal speech. PSYCHIATRIC: Appropriate mood and affect; insight and judgment normal. Assessment and Plan Assessment and Plan RML PNA PULM FIBROSIS RESPIRATORY FAILURE ON HOME O2 PLAN O2 ANTIBIOTICS F/U CXRAY Kiah Dupont MD Mar 19, 2017 18:33
[2017-03-19] MEDS: predniSONE 20 MG TAB PO SCH (22:45)
[2017-03-20] VITALS (7 sets, daily range): BP systolic 133–148; BP diastolic 57–73; PULSE 57–66; RESP 18; TEMP 96.4–96.8; O2SAT 92–98
[2017-03-20] MEDS: RESP: ALBUTEROL 2.5 MG/IPRATROPIUM 0.5 MG NEB (SCH) NEB ×2 (04:00→09:42)
[2017-03-20] MEDS: HEPARIN SODIUM - SQ 10,000 UNITS/ML VIAL SQ SCH (05:47)
[2017-03-20] MEDS: LEVOTHYROXINE SODIUM 75 MCG TAB PO SCH (09:00)
[2017-03-20] MEDS: SODIUM CHLORIDE 0.9% FLUSH 10 ML FLUSH IV FLUSH SCH (09:00)
[2017-03-20] MEDS: INSULIN ASPART SUPPLEMENTAL SCALE SQ SCH ×2 (09:03→12:00)
[2017-03-20] MEDS: EZETIMIBE 10 MG TAB PO SCH (09:03)
[2017-03-20] MEDS: PANTOPRAZOLE SOD 40 MG DELAYED RELEASE TAB PO SCH (09:04)
[2017-03-20] MEDS: LOSARTAN 50 MG TAB PO SCH (09:04)
[2017-03-20] MEDS: CARVEDILOL 3.125 MG TAB PO SCH (09:04)
[2017-03-20] MEDS: POTASSIUM CHLORIDE 20 MEQ CONTROLLED RELEASE TAB PO SCH (09:04)
[2017-03-20] MEDS: PRAVASTATIN SOD 20 MG TAB PO SCH (09:04)
[2017-03-20] MEDS: predniSONE 20 MG TAB PO SCH (09:04)
[2017-03-20] MEDS: CLOPIDOGREL 75 MG TAB PO SCH (09:04)
[2017-03-20] MEDS: amLODIPine BESYLATE 5 MG TAB PO SCH (09:05)
[2017-03-20] MEDS: guaiFENesin E.R. 600 MG TAB PO SCH (09:05)
[2017-03-20] MEDS: PRAMIPEXOLE DIHYDROCHLORIDE 1 MG TAB PO SCH (09:05)
[2017-03-20] MEDS: FAMOTIDINE 20 MG TAB PO SCH (09:05)
[2017-03-20] MEDS ORDERED: IPRASOL INH (11:17)
[2017-03-20] MEDS ORDERED: PRED10 PO (11:17)
[2017-03-20] MEDS ORDERED: AMLO5TAB2 PO (11:17)
[2017-03-20] MEDS ORDERED: PRED20 PO ×2 (11:17)
[2017-03-20] MEDS ORDERED: LOSA50TA PO (11:17)
[2017-03-20] MEDS ORDERED: LEVA750T9 PO (11:17)
[2017-03-20] MEDS ORDERED: FURO1TAB62 PO (11:17)
--- NOTE | 2017-03-20 11:18 | HHI.DCPOC ---
Discharge Care Plan Diagnosis: (1) Interstitial lung disease (2) Renal insufficiency (3) Pneumonia Goals to Promote Your Health * To prevent worsening of your condition and complications * To maintain your health at the optimal level Directions to Meet Your Goals Take your medications as prescribed Follow your dietary instruction Follow activity as directed Keep your appointments as scheduled Take your immunizations and boosters as scheduled If your symptoms worsen call your PCP, if no PCP go to Urgent Care Center or Emergency Room Smoking is Dangerous to Your Health. Avoid second hand smoke Call the 24-hour hour crisis hotline for domestic abuse at Michael Valenzuela DO Mar 20, 2017 11:18
[2017-03-20] MEDS ORDERED: NEBULIZER1 MI1 (11:20)
--- NOTE | 2017-03-20 11:33 | HHI.DS ---
Discharge Summary Admission Date Mar 17, 2017 at 16:04 Discharge Date: Mar 20, 2017 Admitting Diagnosis Right middle and lower lobe pneumonia (1) Renal insufficiency ICD Code: N28.9 - Disorder of kidney and ureter, unspecified (2) Pneumonia ICD Code: J18.9 - Pneumonia, unspecified organism Diagnosis: Principal Status: Acute (3) Interstitial lung disease ICD Code: J84.9 - Interstitial pulmonary disease, unspecified Diagnosis: Principal Procedures None Brief History - From Admission shortness of breath stated no cough but then had mucus no fever, but was having hot and cold chills mucus plain white color symptoms a week no nasuea/ vomiting . no urinary symptoms have been constipated - comes and goes and improve with laxatives hx of copd on home oxygen 3L today symptoms was so bad that she has been using it more often and all day long CBC/BMP: 03/18/17 1037 03/19/17 1419 Significant Findings Laboratory Tests Test 03/17/17 12:45 03/17/17 16:11 03/18/17 10:37 03/19/17 14:19 Neutrophils (%) (Auto) 79.1 % (16.0-70.0) 86.4 % (16.0-70.0) Lymphocytes # (Auto) 0.9 TH/MM3 (1.0-4.8) 0.7 TH/MM3 (1.0-4.8) Blood Urea Nitrogen 26 MG/DL (7-18) 35 MG/DL (7-18) 42 MG/DL (7-18) Creatinine 1.32 MG/DL (0.50-1.00) 1.36 MG/DL (0.50-1.00) 1.29 MG/DL (0.50-1.00) Random Glucose 155 MG/DL (74-106) 320 MG/DL (74-106) 281 MG/DL (74-106) Estimat Glomerular Filtration Rate 38 ML/MIN (>89) 37 ML/MIN (>89) 39 ML/MIN (>89) Troponin I LESS THAN 0.02 NG/ML Sodium Level 135 MEQ/L (136-145) Imaging Last Impressions Chest X-Ray 03/18/17 0000 Signed Impressions: Service Date/Time: Saturday, March 18, 2017 20:50 - CONCLUSION: Persistent patchy infiltrates in both lungs, right greater than left and probable associated right pleural effusion. Emilio Louise MD PE at Discharge GENERAL: This is a well-nourished, well-developed patient, in no apparent distress. SKIN: No rashes, ecchymoses or lesions. Cool and dry. HEAD: Atraumatic. Normocephalic. No temporal or scalp tenderness. EYES: Pupils equal round and reactive. Extraocular motions intact. No scleral icterus. No injection or drainage. ENT: Nose without bleeding, purulent drainage or septal hematoma. Throat without erythema, tonsillar hypertrophy or exudate. Uvula midline. Airway patent. NECK: Trachea midline. No JVD or lymphadenopathy. Supple, nontender, no meningeal signs. No masses. CARDIOVASCULAR: Regular rate and rhythm without murmurs, gallops, or rubs. RESPIRATORY: Clear to auscultation. Breath sounds equal bilaterally. No wheezes , rales, or rhonchi. GASTROINTESTINAL: Abdomen soft, non-tender, nondistended. No hepato-splenomegaly , or palpable masses. No guarding. MUSCULOSKELETAL: Extremities without clubbing, cyanosis, or edema. No joint tenderness, effusion, or edema noted. NEUROLOGICAL: Awake and alert. Cranial nerves II through XII intact. Motor and sensory grossly within normal limits. Five out of 5 muscle strength in all muscle groups. Normal speech. PSYCH: Mood and affect appropriate. Pt update on day of discharge The patient was feeling well and wanted to go home. She had questions about traveling in the next 2 days. She wanted to know if she could have some prescriptions to take home with her. Discussed with nursing. Hospital Course Interstitial lung disease/ Pneumonia The pt has home oxygen dependence. Repeat CXR shows persistent patchy infiltrates in both lungs, right greater than left and probable associated right pleural effusion. Pulmonology was consulted. The pt was started on IV Levaquin. We encouraged ambulation and the pt worked with physical therapy. She received incentive spirometry. She received nebs prn and will be discharged with a nebulizer. She was on IV steroids which were changed to prednisone. She will complete a taper at home. She will follow up with pulmonology as an outpt. She has home oxygen, which she was encouraged to use. Acute renal failure/ HTN Unsure of baseline. We held the pt's Lasix and ARB and she was given IVFs. Her creatinine remained stable. We cut her Lasix and ARB in half and increased her amlodipine to 5 mg daily for blood pressure control. She will have a repeat BMP in 3-5 days and will follow up with her PCP. Sore throat The pt thought it was secondary to mucous. Exam was unremarkable. The pt received chloropeptic lozenges and spray as needed. She received Mucinex for congestion. Pt Condition on Discharge: Stable Discharge Disposition: Discharge Home Discharge Time: > 30 minutes Discharge Instructions DIET: Follow Instructions for: Heart Healthy Diet Activities you can perform: Weight Bearing as Miguel Follow up Referrals: PCP Follow-up - 1 Week PCP Follow-up Pulmonology - 1 Week Pulmonology New Orders: BASIC METABOLIC PROF - 3-5 Days New Medications: Amlodipine (Amlodipine) 5 Mg Tab 5 MG PO DAILY for Blood Pressure Management, #30 TAB 0 Refills Furosemide (Lasix) 20 Mg Tab 20 MG PO DAILY for Edema, #30 TAB 0 Refills Ipratropium-Albuterol Neb (Duoneb) 0.5-2.5 Mg/3 Ml Neb 1 NEBULE INH Q4HR NEB for Breathing Treatment, #120 NEBULE 0 Refills Levofloxacin (Levaquin) 750 Mg Tablet 750 MG PO EVERY OTHER DAY for Infection, #3 TAB 0 Refills Losartan (Losartan) 50 Mg Tab 50 MG PO DAILY for Blood Pressure Management, #30 TAB 0 Refills Nebulizer (Nebulizer) 1 Mis Mis EA .ROUTE DIRECTED for Breathing Treatment, #1 0 Refills Prednisone (Prednisone) 20 Mg Tab 20 MG PO DAILY for Broncospasm, #3 TAB 0 Refills Prednisone (Prednisone) 10 Mg Tab 10 MG PO DAILY for Broncospasm, #3 TAB 0 Refills Prednisone (Prednisone) 20 Mg Tab 20 MG PO BID for Broncospasm, #4 TAB Continued Medications: Carvedilol (Coreg) 3.125 Mg Tab 3.125 MG PO BID, #60 TAB 0 Refills Clopidogrel (Plavix) 75 Mg Tab 75 MG PO DAILY for Blood Clot Prevention, #30 TAB 0 Refills Ezetimibe (Zetia) 10 Mg Tab 10 MG PO DAILY, #30 TAB 0 Refills Levothyroxine (Synthroid) 75 Mcg Tab 75 MCG PO DAILY for Thyroid, #30 TAB 0 Refills Pantoprazole (Protonix) 40 Mg Tab 40 MG PO DAILY for Reflux, #30 TAB 0 Refills Potassium Chloride ER (Potassium Chloride ER) 20 Meq Tab 20 MEQ PO DAILY for Electrolyte Replacement, #30 TAB 0 Refills Pramipexole (Mirapex) 1 Mg Tab 1 MG PO DAILY for Parkinson Disease Mgmt, #30 TAB 0 Refills Pravastatin (Pravastatin) 20 Mg Tab 20 MG PO DAILY for Cholesterol Management, #30 TAB 0 Refills Prednisone (Prednisone) 5 Mg Tab 5 MG PO DAILY, TAB 0 Refills Ranitidine (Zantac) 150 Mg Tab 150 MG PO BID for Reduce Stomach Acid, #60 TAB 0 Refills Discontinued Medications: Amlodipine (Norvasc) 2.5 Mg Tab 2.5 MG PO DAILY for Blood Pressure Management, #30 TAB 0 Refills Furosemide (Lasix) 40 Mg Tab 40 MG PO DAILY, #30 TAB 0 Refills Losartan (Cozaar) 100 Mg Tab 100 MG PO DAILY for Blood Pressure Management, #30 TAB 0 Refills Michael Valenzuela DO Mar 20, 2017 11:33
[2017-03-20 12:09] LABS: BICARBONATE 27.3 MEQ/L (21.0-32.0); MAGNESIUM 1.8 MG/DL (1.5-2.5)
== END 2017-03-20 13:58 | disposition home or self-care (01) ==
LOC: NEPC 12:31 → INTOOBSV 16:04 → NEDA 16:04 → N07A 18:43
PROVIDERS: ADMIT Hospitalist; ATTEND Hospitalist
DX: J84.10 Pulmonary fibrosis, unspecified (principal); J18.9 Pneumonia, unspecified organism; J44.0 Chronic obstructive pulmonary disease with (acute) lower respiratory infection; J96.90 Respiratory failure, unspecified, unspecified whether with hypoxia or hypercapnia; K59.00 Constipation, unspecified; N17.9 Acute kidney failure, unspecified; I10 Essential (primary) hypertension; I25.10 Atherosclerotic heart disease of native coronary artery without angina pectoris; I45.10 Unspecified right bundle-branch block; E78.00 Pure hypercholesterolemia, unspecified; E03.9 Hypothyroidism, unspecified; E11.9 Type 2 diabetes mellitus without complications; M06.9 Rheumatoid arthritis, unspecified; K21.9 Gastro-esophageal reflux disease without esophagitis; N39.3 Stress incontinence (female) (male); M19.90 Unspecified osteoarthritis, unspecified site; Z95.5 Presence of coronary angioplasty implant and graft; Z99.81 Dependence on supplemental oxygen; Z79.899 Other long term (current) drug therapy
CPT/HCPCS: 71020; 80048; 82550; 82948; 83605; 83690; 83735; 83880; 84484; 85025; 85610; 85730; 87040; 93005; 94620; 94640; 94664; 96365; 96372; 96375; 96376; 97161; 99285; G0378; J0696; J1644; J1815; J1956; J2920; J7030; J7512; 96374

== ENCOUNTER 2017-03-31 14:48 | Observation (INO) | payer MEDICARE, OTHER ==
[~2017-03-31] VITALS: Ht 157.5 cm; Wt 80.0 kg
[~2017-03-31 14:48] MED LIST changes: +AMLO5TAB2 PO; -ASPI81TA82 PO; -AZIT250T74 PO; +CARV3.125 PO; -COZA50TA PO; +EZET10 PO; +FURO1TAB62 PO; +IPRASOL INH; +LEVA750T9 PO; +LEVO.075 PO; -LEVO75TA3 PO; -LEXA10TA PO; +LOSA50TA PO; +NEBULIZER1 MI1; +PLAV75TA29 PO; +POTA-163 PO; -PRAM.25 PO; +PRAM1 PO; +PRAV20TA2 PO; +PRED10 PO; +PRED20 PO; +PRED5TAB PO; +ZANT150T2 PO
[2017-03-31] MEDS ORDERED: IOHEXOL 350 MG/ML 10 ML VIAL (for RAD DIAG) IVCONTRAST ONE (14:49)
[2017-03-31 14:53] VITALS: BP 132/80; PULSE 54; RESP 16; TEMP 98.3; O2SAT 97
--- NOTE | 2017-03-31 14:55 | PD ---
HPI Time Seen by Provider: 14:53 History of Present Illness HPI C/O CHEST PRESSURE, SUBSTERNAL , RAD TO BACK, 8/10 DECREASED AFTER MULTIPLE NTG AND 2 ASA GIVEN BY EMS. PATIENT WAS RECENTLY ADMITTED IN MID FEBRUARY FOR PNA. ALL: PCP:LEON GUERRERO CARDIO:HOLLIE SPRINGER Past Medical History Hx Anticoagulant Therapy: Yes (PLAVIX) Cancer: No Cardiovascular Problems: Yes High Cholesterol: Yes Congestive Heart Failure: Yes COPD: Yes Diabetes: No Diminished Hearing: No Endocrine: Yes Gastrointestinal Disorders: Yes (ACID REFLUX) Genitourinary: Yes Hepatitis: No Hiatal Hernia: Yes Hypertension: Yes Immune Disorder: Yes (rheumatoid) Musculoskeletal: Yes (rheumatoid ARTHRITIS) Neurologic: No Psychiatric: Yes Reproductive: No Respiratory: Yes Sleep Apnea: Yes Thyroid Disease: Yes (HYPO) Menopausal: Yes Past Surgical History Abdominal Surgery: Yes (partial colectomy due to diverticulitis) Body Medical Devices: x4 cardiac stents Cardiac Surgery: Yes (x 4 cardiac stents) Genitourinary Surgery: Yes (bladder tuck ) Pacemaker: No Other Surgery: Yes Social History Alcohol Use: No Tobacco Use: No Substance Use: No Allergies-Medications (Allergen,Severity, Reaction): Coded Allergies: simvastatin (Unverified Allergy, Severe, muscle pain, 03/31/17) Reported Meds & Prescriptions Reported Meds & Active Scripts Active Nebulizer 1 Mis Mis Ea .ROUTE DIRECTED Prednisone 10 Mg Tab 10 Mg PO DAILY Prednisone 20 Mg Tab 20 Mg PO DAILY Prednisone 20 Mg Tab 20 Mg PO BID Lasix (Furosemide) 20 Mg Tab 20 Mg PO DAILY Losartan (Losartan Potassium) 50 Mg Tab 50 Mg PO DAILY Amlodipine (Amlodipine Besylate) 5 Mg Tab 5 Mg PO DAILY Duoneb (Ipratropium-Albuterol Neb) 0.5-2.5 Mg/3 Ml Neb 1 Nebule INH Q4HR NEB Levaquin (Levofloxacin) 750 Mg Tablet 750 Mg PO EVERY OTHER DAY Reported Potassium Chloride ER (Potassium Chloride) 20 Meq Tab 20 Meq PO DAILY Protonix (Pantoprazole Sodium) 40 Mg Tab 40 Mg PO DAILY Pravastatin 20 Mg Tab 20 Mg PO DAILY Prednisone 5 Mg Tab 5 Mg PO DAILY Mirapex (Pramipexole Dihydrochloride) 1 Mg Tab 1 Mg PO DAILY Plavix (Clopidogrel Bisulfate) 75 Mg Tab 75 Mg PO DAILY Coreg (Carvedilol) 3.125 Mg Tab 3.125 Mg PO BID Synthroid (Levothyroxine Sodium) 75 Mcg Tab 75 Mcg PO DAILY Zantac (Ranitidine HCl) 150 Mg Tab 150 Mg PO BID Zetia (Ezetimibe) 10 Mg Tab 10 Mg PO DAILY Review of Systems General / Constitutional: No: Fever Eyes: No: Visual changes HENT: No: Headaches Cardiovascular: Positive: Chest Pain or Discomfort Respiratory: No: Shortness of Breath Gastrointestinal: No: Abdominal Pain Genitourinary: No: Dysuria Musculoskeletal: No: Pain Skin: No Rash Neurologic: No: Weakness Psychiatric: No: Depression Endocrine: No: Polydipsia Hematologic/Lymphatic: No: Easy Bruising Physical Exam Narrative GENERAL: SKIN: Warm and dry. HEAD: Atraumatic. Normocephalic. EYES: Pupils equal and round. No scleral icterus. No injection or drainage. ENT: No nasal bleeding or discharge. Mucous membranes pink and moist. NECK: Trachea midline. No JVD. CARDIOVASCULAR: Regular rate and rhythm. RESPIRATORY: No accessory muscle use. Clear to auscultation. Breath sounds equal bilaterally. GASTROINTESTINAL: Abdomen soft, non-tender, nondistended. MUSCULOSKELETAL: Extremities without clubbing, cyanosis, or edema. No obvious deformities. NEUROLOGICAL: Awake and alert. No obvious cranial nerve deficits. Motor grossly within normal limits. Five out of 5 muscle strength in the arms and legs. Normal speech. PSYCHIATRIC: Appropriate mood and affect; insight and judgment normal. Data Data Last Documented VS Vital Signs Date Time Temp Pulse Resp B/P (MAP) Pulse Ox O2 Delivery O2 Flow Rate FiO2 03/31/17 15:02 94 Nasal Cannula 2.00 03/31/17 14:57 52 18 03/31/17 14:53 98.3 132/80 (97) Orders Orders Electrocardiogram (03/31/17 14:53) B-Type Natriuretic Peptide (03/31/17 14:53) Ckmb (Isoenzyme) Profile (03/31/17 14:53) Complete Blood Count With Diff (03/31/17 14:53) Comprehensive Metabolic Panel (03/31/17 14:53) Prothrombin Time / Inr (Pt) (03/31/17 14:53) Act Partial Throm Time (Ptt) (03/31/17 14:53) Troponin I (03/31/17 14:53) Lipase (03/31/17 14:53) Chest, Single Ap (03/31/17 14:53) Ecg Monitoring (03/31/17 14:53) Bilateral Bp Monitoring (03/31/17 14:53) Iv Access Insert/Monitor (03/31/17 14:53) Oximetry (03/31/17 14:53) Oxygen Administration (03/31/17 14:53) Sodium Chloride 0.9% Flush (Ns Flush) (03/31/17 15:00) Ct Pulmonary Angiogram (03/31/17 15:09) MDM Medical Decision Making Medical Screen Exam Complete: Yes Emergency Medical Condition: Yes Medical Record Reviewed: Yes Interpretation(s) SINUS ANNA 50, MINIMAL BASELINE MOTIION ARTIFACT, NO STEMI PATTERN Differential Diagnosis PE V AAA V CO V NONSTEMI Diagnosis Primary Impression: CP R/O CO Admitting Information Admitting Physician Requests: Pipe Ocasio MD Mar 31, 2017 14:55
[2017-03-31] MEDS ORDERED: SODIUM CHLORIDE 0.9% FLUSH 10 ML FLUSH IVF PRN (15:00)
[2017-03-31 15:24] LABS: AUTOMATED NEUTROPHIL # 10.8 TH/MM3 (1.8-7.7); BASOPHIL # 0.1 TH/MM3 (0-0.2); BASOPHIL % 0.6 % (0.0-2.0); EOSINOPHIL # 0.2 TH/MM3 (0-0.4); EOSINOPHIL % 1.6 % (0.0-4.0); HEMATOCRIT 40.9 % (35.0-46.0); HEMOGLOBIN 13.5 GM/DL (11.6-15.3); LYMPH % 9.2 % (9.0-44.0); LYMPHOCYTE # 1.2 TH/MM3 (1.0-4.8); MEAN CELL VOLUME 90.2 FL (80.0-100.0); MEAN CORPUSCULAR HEMOGLOBIN 29.7 PG (27.0-34.0); MEAN CORPUSCULAR HGB CONC 32.9 % (32.0-36.0); MEAN PLATELET VOLUME 7.6 FL (7.0-11.0); MONO % 4.4 % (0.0-8.0); MONOCYTE # 0.6 TH/MM3 (0-0.9); NEUT % 84.2 % (16.0-70.0); PLATELET COUNT 206 TH/MM3 (150-450); RED BLOOD COUNT 4.53 MIL/MM3 (4.00-5.30); WHITE BLOOD COUNT 12.8 TH/MM3 (4.0-11.0)
[2017-03-31 15:35] LABS: PROTHROMBIN TIME - PATIENT 9.9 SEC (9.8-11.6)
[2017-03-31 15:39] LABS: ALBUMIN 3.7 GM/DL (3.4-5.0); ALT (GPT) 30 U/L (10-53); AST (GOT) 18 U/L (15-37); BICARBONATE 29.1 MEQ/L (21.0-32.0); BLOOD UREA NITROGEN 31 MG/DL (7-18); CHLORIDE 101 MEQ/L (98-107); GLOMERULAR FILTRATION RATE 43 ML/MIN (>89); GLUCOSE,RANDOM 145 MG/DL (74-106); LIPASE 265 U/L (73-393); SODIUM (NA) 137 MEQ/L (136-145)
[2017-03-31 15:43] LABS: ALKALINE PHOSPHATASE 66 U/L (45-117); TOTAL BILIRUBIN ADULT 0.4 MG/DL (0.2-1.0); TOTAL PROTEIN 7.7 GM/DL (6.4-8.2); TROPONIN I LESS THAN 0.02 NG/ML (0.02-0.05)
--- NOTE | 2017-03-31 16:16 | RADRPT ---
EXAM DATE/TIME: 03/31/2017 15:33 [facility] COMPARISON: CHEST SINGLE AP, April 04, 2013, 12:28. INDICATIONS : Chest pain. MEDICAL HISTORY : Chronic obstructive pulmonary disease. Myocardial infarction. SURGICAL HISTORY : Coronary artery stent. ENCOUNTER: Initial ACUITY: 2 days PAIN SCORE: 5/10 LOCATION: Bilateral chest FINDINGS: Scattered reticulonodular infiltrates are noted bilaterally. The heart is stable. CONCLUSION: Scattered reticulonodular infiltrates bilaterally. Star Soares MD on March 31, 2017 at 16:13 Board Certified Radiologist. This report was verified electronically.
--- NOTE | 2017-03-31 16:48 | RADRPT ---
EXAM DATE/TIME: 03/31/2017 16:35 [place] COMPARISON: No previous studies available for comparison. INDICATIONS : Short of breath, embolism. IV CONTRAST: 74 cc Omnipaque 350 (iohexol) IV RADIATION DOSE: 23.00 CTDIvol (mGy) MEDICAL HISTORY : Cardiovascular disease. Hypertension. Chronic obstructive pulmonary disease. SURGICAL HISTORY : None. ENCOUNTER: Initial ACUITY: 1 day PAIN SCALE: 4/10 LOCATION: Bilateral chest TECHNIQUE: Volumetric scanning of the chest was performed using a pulmonary embolism protocol MIP images were re constructed. Using automated exposure control and adjustment of the mA and/or kV according to patien t size, radiation dose was kept as low as reasonably achievable to obtain optimal diagnostic quality images. DICOM format image data is available electronically for review and comparison. Follow-up recommendations for detected pulmonary nodules are based at a minimum on nodule size and pa tient risk factors according to Fleischner Society Guidelines. FINDINGS: Examination of the pulmonary vasculature demonstrates good filling of the main, lobar and segmental b ranches. There are no filling defects to suggest pulmonary embolism. Multiplanar reconstructions are also unremarkable. There are bilateral pulmonary nodules which may reflect metastatic disease in this patient with a mas s along the left heart border measuring 3 CM by 5.3 CM. There are enlarged precarinal lymph nodes wit h calcification which may be related to previous granulomatous disease. The visualized upper abdomen demonstrates no abnormality. CONCLUSION: 1. No evidence of pulmonary embolism. 2. Mass along the left heart border which may reflect malignancy with multiple bilateral pulmonary no dules present. These air-fluid metastatic disease. Girish Leonardo MD on March 31, 2017 at 16:41 Board Certified Radiologist. This report was verified electronically.
[2017-03-31 17:20] VITALS: BP 143/65; PULSE 51; RESP 20; O2SAT 94
[2017-03-31] MEDS ORDERED: NALOXONE HCL 0.4 MG/ML AMP IV PUSH PRN (17:30)
[2017-03-31] MEDS ORDERED: RESP: ALBUTEROL 2.5 MG/IPRATROPIUM 0.5 MG NEB (PRN) NEB (17:30)
[2017-03-31] MEDS ORDERED: SODIUM CHLORIDE 0.9% FLUSH 10 ML FLUSH IV FLUSH PRN (17:30)
--- NOTE | 2017-03-31 18:48 | HHI.HP ---
HPI Service [facility] Primary Care Physician Jamie Patterson MD Admission Diagnosis CP R/O NV Diagnoses: Travel History International Travel<30 Days: No Contact w/Intl Traveler <30 Da: No Traveled to Known Affected Are: No History of Present Illness hx from patient, ER MD communication and review of med records came because felt such heaviness on her chest but not short of breath was then her normal was on antibiotics and prednisone from last discharge- finished both thursday now back on regular prednisone 5mg previous dose chest tightness came about 2pm today went to her back reproducible but similar to prior NV episodes reports of falling asleep easily lately on home oxygen 2L - same as before, did not increase or anything ambulance gave nitro pain subsided with nitro Review of Systems Except as stated in HPI: all other systems reviewed are Neg Past Family Social History Past Medical History htn border line dm copd cad- 4 stents,. NV hypothryoidism Past Surgical History part of intestine removed for diverticulosis tonsilectomy Allergies: Coded Allergies: simvastatin (Unverified Allergy, Severe, muscle pain, 03/31/17) Family History breast cancer- both sisters Social History quit smoking 40yrs ago no etoh abuse no drugs lives by herself, still driving Physical Exam Vital Signs Vital Signs Date Time Temp Pulse Resp B/P (MAP) Pulse Ox O2 Delivery O2 Flow Rate FiO2 03/31/17 17:20 51 20 143/65 (91) 94 Room Air 03/31/17 15:02 94 Nasal Cannula 2.00 03/31/17 14:57 52 18 93 Room Air 03/31/17 14:53 98.3 54 16 132/80 (97) 97 Physical Exam GENERAL: This is a well-nourished, well-developed patient, in no apparent distress. SKIN: No rashes, ecchymoses or lesions. Cool and dry. HEAD: Atraumatic. Normocephalic. No temporal or scalp tenderness. EYES: No scleral icterus. No injection or drainage. ENT: Nose without bleeding, purulent drainage or septal hematoma. Airway patent. NECK: Trachea midline. No JVD CARDIOVASCULAR: Regular rate and rhythm without murmurs, gallops, or rubs. RESPIRATORY: bilateral basilar crepitations, GASTROINTESTINAL: Abdomen soft, non-tender, nondistended.No guarding. MUSCULOSKELETAL: Extremities without clubbing, cyanosis, or edema.. No calf tenderness. NEUROLOGICAL: Awake and alert. Motor and sensory grossly within normal limits. Normal speech. Laboratory Laboratory Tests Test 03/31/17 15:05 White Blood Count 12.8 Red Blood Count 4.53 Hemoglobin 13.5 Hematocrit 40.9 Mean Corpuscular Volume 90.2 Mean Corpuscular Hemoglobin 29.7 Mean Corpuscular Hemoglobin Concent 32.9 Red Cell Distribution Width 15.0 Platelet Count 206 Mean Platelet Volume 7.6 Neutrophils (%) (Auto) 84.2 Lymphocytes (%) (Auto) 9.2 Monocytes (%) (Auto) 4.4 Eosinophils (%) (Auto) 1.6 Basophils (%) (Auto) 0.6 Neutrophils # (Auto) 10.8 Lymphocytes # (Auto) 1.2 Monocytes # (Auto) 0.6 Eosinophils # (Auto) 0.2 Basophils # (Auto) 0.1 CBC Comment DIFF FINAL Differential Comment Prothrombin Time 9.9 Prothromb Time International Ratio 1.0 Activated Partial Thromboplast Time 22.6 Blood Urea Nitrogen 31 Creatinine 1.20 Random Glucose 145 Total Protein 7.7 Albumin 3.7 Calcium Level 9.0 Alkaline Phosphatase 66 Aspartate Amino Transf (AST/SGOT) 18 Alanine Aminotransferase (ALT/SGPT) 30 Total Bilirubin 0.4 Sodium Level 137 Potassium Level 4.6 Chloride Level 101 Carbon Dioxide Level 29.1 Anion Gap 7 Estimat Glomerular Filtration Rate 43 Total Creatine Kinase 62 Troponin I LESS THAN 0.02 B-Type Natriuretic Peptide 60 Lipase 265 Result Diagram: 03/31/17 1505 03/31/17 1505 Imaging Last [address] Angiography 03/31/17 1509 Signed Impressions: Service Date/Time: Friday, March 31, 2017 16:35 - CONCLUSION: 1. No evidence of pulmonary embolism. 2. Mass along the left heart border which may reflect malignancy with multiple bilateral pulmonary nodules present. These air-fluid metastatic disease. Girish Leonardo MD Chest X-Ray 03/31/17 1453 Signed Impressions: Service Date/Time: Friday, March 31, 2017 15:33 - CONCLUSION: Scattered reticulonodular infiltrates bilaterally. Star Soares MD Caprini VTE Risk Assessment Caprini VTE Risk Assessment: Mod/High Risk (score >= 2) Caprini Risk Assessment Model Point Value = 1 Point Value = 2 Point Value = 3 Point Value = 5 Age 41-60 Minor surgery BMI > 25 kg/m2 Swollen legs Varicose veins or History of unexplained or recurrent spontaneous Oral contraceptives or hormone replacement Sepsis (< 1 month) Serious lung disease, including pneumonia (< 1 month) Abnormal pulmonary function Acute myocardial infarction Congestive heart failure (< 1 month) History of inflammatory bowel disease Medical patient at bed rest Age 61-74 Arthroscopic surgery Major open surgery (> 45 min) Laparoscopic surgery (> 45 min) Malignancy Confined to bed (> 72 hours) Immobilizing plaster cast Central venous access Age >= 75 History of VTE Family history of VTE Factor V Leiden Prothrombin [id number] Lupus anticoagulant Anticardiolipin antibodies Elevated serum homocysteine Heparin-induced thrombocytopenia Other congenital or acquired thrombophilia Stroke (< 1 month) Elective arthroplasty Hip, pelvis, or leg fracture Acute spinal cord injury (< 1 month) Prophylaxis Regimen Total Risk Factor Score Risk Level Prophylaxis Regimen 0-1 Low Early ambulation 2 Moderate Order ONE of the following: *Sequential Compression Device (SCD) *Heparin 5000 units SQ BID 3-4 Higher Order ONE of the following medications: *Heparin 5000 units SQ TID *Enoxaparin/Lovenox 40 mg SQ daily (WT < 150 kg, CrCl > 30 mL/min) *Enoxaparin/Lovenox 30 mg SQ daily (WT < 150 kg, CrCl > 10-29 mL/min) *Enoxaparin/Lovenox 30 mg SQ BID (WT < 150 kg, CrCl > 30 mL/min) AND/OR *Sequential Compression Device (SCD) 5 or more Highest Order ONE of the following medications: *Heparin 5000 units SQ TID (Preferred with Epidurals) *Enoxaparin/Lovenox 40 mg SQ daily (WT < 150 kg, CrCl > 30 mL/min) *Enoxaparin/Lovenox 30 mg SQ daily (WT < 150 kg, CrCl > 10-29 mL/min) *Enoxaparin/Lovenox 30 mg SQ BID (WT < 150 kg, CrCl > 30 mL/min) AND *Sequential Compression Device (SCD) Assessment and Plan Assessment and Plan Impression: Chest pain. We'll rule out ACS. Given that patient has significant coronary artery disease, we will consult her qualitative executive researcher as well for further cardiac workup. Incidental finding of lung mass with surrounding lymphadenopathy Recent pneumonia. Symptoms resolved for most part. Completed antibiotics course and steroids tapering course. Renal insufficiency. Has not improved since discharge although medications were adjusted and patient was hydrated. Suspect underlying CKD. Renal ultrasound and nephrology evaluation as an outpatient. 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 NV hypothryoidism Plan: Serial cardiac enzymes and EKGs. Cardiology consult. Resume home dose of beta blockers, statins, ARB. Resume home dose of Lasix. Home medications changes from previous discharge noted against the discharge summary. Nebs when necessary. Pulmonology consult with patient's sales and marketing professional regarding possible lung mass. Oxygen supplementation. DVT prophylaxis with heparin. Discussed Condition With patient, ER , nursing staff Paula Jerry MD Mar 31, 2017 18:48
[2017-03-31] MEDS ORDERED: PILL SPLITTER OTHER PRN (19:45)
[2017-03-31] MEDS: FAMOTIDINE 20 MG TAB PO SCH (20:24)
[2017-03-31] MEDS: CARVEDILOL 3.125 MG TAB PO SCH (20:24)
[2017-03-31] MEDS: SODIUM CHLORIDE 0.9% FLUSH 10 ML FLUSH IV FLUSH SCH (20:25)
[2017-03-31 20:48] VITALS: BP 106/58; PULSE 63; RESP 17; TEMP 97.7; O2SAT 93
[2017-03-31 21:28] LABS: TROPONIN I LESS THAN 0.02 NG/ML (0.02-0.05)
[2017-03-31] MEDS ORDERED: RESP: ALBUTEROL 2.5 MG/IPRATROPIUM 0.5 MG NEB (SCH) NEB (22:00)
[2017-03-31] MEDS: HEPARIN SODIUM - SQ 10,000 UNITS/ML VIAL SQ SCH (22:19)
[2017-03-31 23:31] VITALS: BP 97/48; PULSE 60; RESP 17; TEMP 98.1; O2SAT 92
[2017-03-31 23:40] VITALS: O2SAT 93
[2017-04-01] VITALS (9 sets, daily range): BP systolic 100–131; BP diastolic 55–86; PULSE 52–68; RESP 18–19; TEMP 97.6–97.8; O2SAT 92–95
[2017-04-01 03:27] LABS: AUTOMATED NEUTROPHIL # 4.7 TH/MM3 (1.8-7.7); BASOPHIL # 0.1 TH/MM3 (0-0.2); BASOPHIL % 0.8 % (0.0-2.0); EOSINOPHIL # 0.2 TH/MM3 (0-0.4); EOSINOPHIL % 2.4 % (0.0-4.0); HEMATOCRIT 38.6 % (35.0-46.0); HEMOGLOBIN 12.5 GM/DL (11.6-15.3); LYMPH % 17.9 % (9.0-44.0); LYMPHOCYTE # 1.2 TH/MM3 (1.0-4.8); MEAN CELL VOLUME 90.9 FL (80.0-100.0); MEAN CORPUSCULAR HEMOGLOBIN 29.5 PG (27.0-34.0); MEAN CORPUSCULAR HGB CONC 32.5 % (32.0-36.0); MEAN PLATELET VOLUME 7.8 FL (7.0-11.0); MONO % 6.8 % (0.0-8.0); MONOCYTE # 0.4 TH/MM3 (0-0.9); NEUT % 72.1 % (16.0-70.0); PLATELET COUNT 185 TH/MM3 (150-450); RED BLOOD COUNT 4.24 MIL/MM3 (4.00-5.30); WHITE BLOOD COUNT 6.5 TH/MM3 (4.0-11.0)
[2017-04-01 04:00] LABS: BICARBONATE 31.4 MEQ/L (21.0-32.0); CALCIUM 8.7 MG/DL (8.5-10.1); CREATININE 1.25 MG/DL (0.50-1.00)
[2017-04-01 04:05] LABS: TROPONIN I LESS THAN 0.02 NG/ML (0.02-0.05)
[2017-04-01] MEDS: HEPARIN SODIUM - SQ 10,000 UNITS/ML VIAL SQ SCH ×2 (05:32→15:28)
[2017-04-01] MEDS ORDERED: LEVOTHYROXINE SODIUM 75 MCG TAB PO SCH (06:00)
[2017-04-01] MEDS ORDERED: CLOPIDOGREL 75 MG TAB PO SCH (09:00)
[2017-04-01] MEDS ORDERED: LOSARTAN 50 MG TAB PO SCH (09:00)
[2017-04-01] MEDS ORDERED: amLODIPine BESYLATE 5 MG TAB PO SCH (09:00)
[2017-04-01] MEDS ORDERED: EZETIMIBE 10 MG TAB PO SCH (09:00)
[2017-04-01] MEDS ORDERED: PRAMIPEXOLE DIHYDROCHLORIDE 1 MG TAB PO SCH (09:00)
[2017-04-01] MEDS ORDERED: PANTOPRAZOLE SOD 40 MG DELAYED RELEASE TAB PO SCH (09:00)
[2017-04-01] MEDS ORDERED: PRAVASTATIN SOD 20 MG TAB PO SCH (09:00)
[2017-04-01] MEDS ORDERED: predniSONE 5 MG TAB PO SCH (09:00)
[2017-04-01] MEDS ORDERED: FUROSEMIDE 20 MG TAB PO SCH (09:00)
[2017-04-01] MEDS ORDERED: POTASSIUM CHLORIDE 20 MEQ CONTROLLED RELEASE TAB PO SCH (09:00)
[2017-04-01] MEDS: FAMOTIDINE 20 MG TAB PO SCH (10:06)
[2017-04-01] MEDS: CARVEDILOL 3.125 MG TAB PO SCH (10:06)
[2017-04-01] MEDS: SODIUM CHLORIDE 0.9% FLUSH 10 ML FLUSH IV FLUSH SCH (10:06)
--- NOTE | 2017-04-01 10:26 | EKG ---
Date Performed: 03/31/2017 Time Performed: 15:14:47 PTAGE: 86 years EKG: SINUS BRADYCARDIA BORDERLINE LEFT AXIS DEVIATION BORDERLINE ECG PREVIOUS TRACING : 03/17/2017 12.52 DOCTOR: Jeet Burr Interpretating Date/Time 04/01/2017 10:24:07
--- NOTE | 2017-04-01 10:40 | HHI.PR ---
Subjective Remarks f/u; chest pain/ lung mass in no acute distress. denies chest pain. no sob or fever. Objective Vitals Vital Signs Date Time Temp Pulse Resp B/P (MAP) Pulse Ox O2 Delivery O2 Flow Rate FiO2 04/01/17 07:41 97.6 58 19 131/62 (85) 94 04/01/17 07:19 94 2.00 04/01/17 04:26 97.8 52 18 100/55 (70) 95 04/01/17 04:00 59 04/01/17 00:05 55 03/31/17 23:40 93 Nasal Cannula 4.00 03/31/17 23:31 98.1 60 17 97/48 (64) 92 03/31/17 20:48 97.7 63 17 106/58 (74) 93 03/31/17 19:31 03/31/17 17:20 51 20 143/65 (91) 94 Room Air 03/31/17 15:02 94 Nasal Cannula 2.00 03/31/17 14:57 52 18 93 Room Air 03/31/17 14:53 98.3 54 16 132/80 (97) 97 I/O 03/31/17 03/31/17 03/31/17 04/01/17 04/01/17 04/01/17 07:00 15:00 23:00 07:00 15:00 23:00 Intake Total 720 ml Balance 720 ml Intake Oral 720 ml # Voids 4 Result Diagram: 04/01/17 0306 04/01/17 [address] Angiography 03/31/17 1509 Signed Impressions: Service Date/Time: Friday, March 31, 2017 16:35 - CONCLUSION: 1. No evidence of pulmonary embolism. 2. Mass along the left heart border which may reflect malignancy with multiple bilateral pulmonary nodules present. These air-fluid metastatic disease. Girish Leonardo MD Chest X-Ray 03/31/17 1453 Signed Impressions: Service Date/Time: Friday, March 31, 2017 15:33 - CONCLUSION: Scattered reticulonodular infiltrates bilaterally. Star Soares MD Objective Remarks GENERAL: This is a well-nourished, well-developed patient, in no apparent distress. CARDIOVASCULAR: Regular rate and regular rhythm without murmurs, gallops, or rubs. RESPIRATORY: Clear to auscultation. Breath sounds equal bilaterally. No wheezes , rales, or rhonchi. GASTROINTESTINAL: Abdomen soft, non-tender, nondistended. Normal, active bowel sounds MUSCULOSKELETAL: Extremities without clubbing, cyanosis, or edema. NEURO: Alert & Oriented x4 to person, place, time, situation. Moves all ext x4 Medications and IVs Inpatient Medications Albuterol/ Ipratropium (Duoneb Neb) 1 ampule Q2HR NEB PRN NEB wheezing; Start 03/31/17 at 17:30 Amlodipine Besylate (Norvasc) 5 mg DAILY PO Last administered on 04/01/17 10:06 ; Start 04/01/17 at 09:00 Carvedilol (Coreg) 3.125 mg BID PO Last administered on 04/01/17 10:06; Start 03/31/17 at 21:00 Clopidogrel Bisulfate (Plavix) 75 mg DAILY PO Last administered on 04/01/17at 10: 07; Start 04/01/17 at 09:00 EZETIMIBE (Zetia) 10 mg DAILY PO Last administered on 04/01/17at 10:06; Start 04/01/17 at 09:00 Famotidine (Pepcid) 10 mg BID PO Last administered on 04/01/17at 10:06; Start 03/31/17 at 21:00 Furosemide (Lasix) 20 mg DAILY PO Last administered on 04/01/17at 10:08; Start at 09:00 Heparin Sodium (Porcine) (Heparin Inj) 5,000 units Q8HR SQ Last administered on 04/01/17at 05:32; Start 03/31/17 at 22:00 Levothyroxine Sodium (Synthroid) 75 mcg DAILY@0600 PO Last administered on 05:32; Start 04/01/17 at 06:00 Losartan Potassium (Cozaar) 50 mg DAILY PO Last administered on 04/01/17at 10:07 ; Start 04/01/17 at 09:00 Miscellaneous (Pill Splitter) 1 ea UNSCH PRN OTHER SEE LABEL COMMENTS; Start at 19:45 Naloxone HCl (Narcan Inj) 0.4 mg UNSCH PRN IV PUSH SEE LABEL COMMENTS; Start 1 /2/18 at 17:30 Pantoprazole Sodium (Protonix) 40 mg DAILY PO Last administered on 04/01/17at 10: 08; Start 04/01/17 at 09:00 Potassium Chloride (KCl) 20 meq DAILY PO Last administered on 04/01/17at 10:07; Start 04/01/17 at 09:00 Pramipexole Dihydrochloride (Mirapex) 1 mg DAILY PO ; Start 04/01/17 at 09:00 Pravastatin Sodium (Pravachol) 20 mg DAILY PO Last administered on 04/01/17 10: 07; Start 04/01/17 at 09:00 Prednisone (Deltasone) 5 mg DAILY PO Last administered on 04/01/17at 10:06; Start 04/01/17 at 09:00 Sodium Chloride (NS Flush) 2 ml BID IV FLUSH Last administered on 04/01/17at 10: 06; Start 03/31/17 at 21:00 A/P Assessment and Plan A/P Chest pain with history of CAD/ stent placement. negative cardiac enzymes- cardiology consulted. continue plavix, statin and BB lung mass with bilateral pulmonary nodules- pulmonary consulted. Recent pneumonia with underlying COPD ( on home oxygen). Symptoms resolved for most part. Completed antibiotics course and steroids tapering course. Renal insufficiency. Has not improved since discharge although medications were adjusted and patient was hydrated. Suspect underlying CKD. Renal ultrasound and nephrology evaluation as an outpatient. Hypertension; continue coreg, cozaar and norvasc continue to monitor and adjust the regimen as needed. hypothyroidism; continue levothyroxine DVT prophylaxis with subq Heparin. Sneha Guaman MD Apr 01, 2017 10:40
--- NOTE | 2017-04-01 13:09 | MB ---
cc: LAURA BROWNE,PACO Mistry M.D. DATE OF CONSULTATION 04/01/2017 DATE OF [address] Guaman REASON FOR CONSULTATION I was asked by Dr. Guaman to evaluate the patient with chest pain syndrome. Shaye Martinez is a very pleasant 86-year-old woman with a past medical history significant for coronary artery disease, status post multiple stents, hypertension, COPD and hypercholesterolemia. Yesterday afternoon she developed severe lower sternal epigastric chest pain that radiated to her back. There was no associated nausea, vomiting or diaphoresis. Due to the severity of her symptoms, she sought emergency room evaluation. Emergency room evaluation is significant for troponins negative for acute coronary syndrome x3. ECG shows no significant ST-T segment changes. CT scan showed no evidence of pulmonary embolism. However, she had a large mass on the left heart border suggestive of malignancy. She had a stress PET scan 09/16/16 that showed no evidence of myocardial ischemia or infarction. MEDICATIONS Reviewed and noted in MAR. ALLERGIES SIMVASTATIN PAST MEDICAL HISTORY As above, she has: 1. COPD 2. Pulmonary fibrosis, wears oxygen at night. 3. Additionally, she has history of hypothyroidism and borderline diabetes. PAST SURGICAL HISTORY 1. Status post colectomy secondary to diverticulosis. 2. Status post tonsillectomy. FAMILY HISTORY Positive family history for both breast cancer. SOCIAL HISTORY She stopped smoking 40 years ago. She does not drink alcohol significantly. No illicit drug use. She lives by herself and remains active with independent daily living, still driving. REVIEW OF SYSTEMS As above, twelve-point review of systems reviewed and noted. No recent fevers, chills, cough or sputum production. No recent gastrointestinal or genitourinary symptoms. PHYSICAL EXAMINATION A moderately obese female. VITAL SIGNS: Temperature 98.3, pulse 54, respirations 16, blood pressure 132/80, O2 sat on room air 97%. HEAD, EYES, EARS, NOSE, AND THROAT: She is anicteric. PERRLA, no xanthelasmas. NECK: Flat JVD. He has no carotid bruits. LUNGS: Clear to auscultation. CARDIAC: Regular rate and rhythm. Soft 1-2/6 systolic murmur left lower sternal border. ABDOMEN: Soft and nontender. EXTREMITIES: With trace edema. She has back tenderness on the right fifth mid thoracic level. LABORATORY DATA WBC 12.6, hemoglobin is 13.5, hematocrit is 40.9. Sodium is 137, potassium 4.6, chloride 101, BNP 60, troponin less than 0.02, lipase is 265. IMPRESSION 1. Chest pain syndrome with atypical features for angina. 2. She has a history of negative stress PET scan 08/2016 with normal ejection fraction. 3. Left mid lung mass suggestive of malignancy. 4. There is pulmonary disease, COPD, pulmonary fibrosis, O2 dependent. 5. History of hypertension, controlled. 6. History of hypercholesterolemia, statin intolerance. 7. Negative acute coronary syndrome by serial troponin levels. PLAN 1. Okay to discharge home from a cardiac standpoint. 2. Malignancy workup in progress. Pulmonary has been consulted. We will likely need endobronchial biopsies versus CT-guided needle biopsy. 3. Reviewed symptoms of acute coronary syndrome. She was instructed to return to the emergency room for severe substernal chest heaviness/pressure associated nausea, diaphoresis and shortness of breath or any chest discomfort similar to her previous angina prior to her multiple stents. Thank you for allowing me to contribute to the patient's care. Thanks for this consultation. MD TRINIDAD Jain/CHELSEY /12:28 PM /12:41 PM
[2017-04-01] MEDS ORDERED: RESP: ALBUTEROL 2.5 MG/IPRATROPIUM 0.5 MG NEB (SCH) NEB (16:00)
--- NOTE | 2017-04-01 18:59 | MB ---
cc: DAVID MILLARD DATE OF CONSULTATION 04/01/2017 REASON FOR CONSULTATION Lung mass. HISTORY OF THE PRESENT ILLNESS This is an 86-year-old white female who was admitted through the emergency room with heaviness in her chest and some nausea and back pain. The patient apparently has a previous history of coronary artery disease and had suffered a myocardial infarct more than 2 months ago and felt like it could be her heart and thus she came to the emergency room and was evaluated for coronary syndrome and subsequently admitted. Following admission also she had a CT scan of the chest which demonstrated no evidence of pulmonary emboli but had evidence of a retrocardiac mass at the left heart border which may reflect malignancy and multiple bilateral pulmonary nodules and air fluid levels. and a day and fluid level. The patient has no hemoptysis. There is an occasional cough and does have some wheezing. She has shortness of breath and does use oxygen at home at night. PAST MEDICAL AND SURGICAL HISTORY Includes: 1. History of diabetes mellitus. 2. History of hypertension. 3. History of coronary artery disease with stenting times four. 4. Previous myocardial infarct. 5. A history of hypothyroidism. Surgery includes: 1. Exploratory laparotomy. 2. Partial bowel resection following diverticulitis. 3. She had aq tonsillectomy remotely. SOCIAL HISTORY Habits, the patient smoked for about 20 years and then quit. No significant alcohol use. Lives alone. FAMILY HISTORY Significant for carcinoma of the breast in two sisters. ALLERGIES SIMVASTATIN. REVIEW OF SYSTEMS The patient denies recent weight loss. No headaches or blackouts. She has epigastric distress. No nausea, vomiting. No urinary symptoms. No leg or calf muscle pains. She has some joint pains of her extremities and she has had some chest pressure. PHYSICAL EXAMINATION GENERAL: This averagely built elderly lady who is alert and oriented, in no acute distress. Mild pallor. No cyanosis. No clubbing or peripheral edema. VITAL SIGNS: Blood pressure 130/70, pulse is 53, respirations 20, temperature 98.2. HEENT: Head normocephalic. Pupils are reactive and equal. Tongue is moist. Throat is clear. Nasal mucosa erythematous. NECK: Supple. No bruits or thyroid enlargement or lymphadenopathy. CHEST: Distant breath sounds with few wheezes in the left lung martines. No crackles on either side. CARDIOVASCULAR: Heart sounds are irregular S1-S2 with no murmur. No S3. ABDOMEN: Soft, protuberant without masses. No organomegaly or tenderness. Bowel sounds are active. EXTREMITIES: No lesions or edema. No calf tenderness. Reflexes are 1+ with no gross motor deficits. NEUROLOGIC: Cranial nerves grossly intact. RECTAL: Exam is deferred. SKIN: Dry and cool. IMPRESSION 1. Left lung mass, etiology undetermined. 2. Multiple lung nodules, rule out neoplastic disease. 3. COPD. 4. History of coronary artery disease. 5. History of hypertension. 6. Borderline diabetes. PLAN The patient has been placed on O2 at 2 liters and she will be placed on nebulized DuoNeb solution t.i.d. p.r.n. We will schedule her for a needle aspiration biopsy of the lung nodule and she may also need a PET CT scan done as an outpatient. A pulmonary function study will be done at the bedside. The patient was advised of the same. I discussed the CT findings with Dr. Elmo Peck and he has agreed to do the CT-guided needle biopsy. Further evaluation will depend on findings on biopsy. We may have to hold off on anticoagulants for 4-5 days and then schedule it. Thank you Dr. Guaman for this consultation. MD EVELYNE Boswell/ANNIE /5:43 PM /6:24 PM
== END 2017-04-01 18:49 | disposition home or self-care (01) ==
LOC: NEPE 14:48 → NEDA 16:39 → NEPGCP 18:43
PROVIDERS: ADMIT Internal Medicine; ATTEND Internal Medicine
DX: R07.89 Other chest pain (principal); I25.119 Atherosclerotic heart disease of native coronary artery with unspecified angina pectoris; R91.8 Other nonspecific abnormal finding of lung field; J18.9 Pneumonia, unspecified organism; J44.9 Chronic obstructive pulmonary disease, unspecified; I11.0 Hypertensive heart disease with heart failure; I50.9 Heart failure, unspecified; R11.0 Nausea; R73.03 Prediabetes; N28.9 Disorder of kidney and ureter, unspecified; I25.2 Old myocardial infarction; E03.9 Hypothyroidism, unspecified; E78.00 Pure hypercholesterolemia, unspecified; K21.9 Gastro-esophageal reflux disease without esophagitis; M06.9 Rheumatoid arthritis, unspecified; M54.9 Dorsalgia, unspecified; G47.30 Sleep apnea, unspecified; K44.9 Diaphragmatic hernia without obstruction or gangrene; Z95.5 Presence of coronary angioplasty implant and graft
CPT/HCPCS: 71045; 71275; 80048; 80053; 82550; 83690; 83880; 84484; 85025; 85610; 85730; 93005; 94060; 96372; 97161; 99285; G0378; G8987; G8988; J1644; J7512; Q9967

== ENCOUNTER → 2017-04-29 | Outpatient (CLI) | payer MEDICARE, OTHER ==
[~2017-04-29] MED LIST changes: -LEVA750T9 PO; -PRED10 PO; -PRED20 PO
== END ==
LOC: HRSP 15:04
PROVIDERS: ATTEND Internal Medicine
DX: J84.10 Pulmonary fibrosis, unspecified (principal)
CPT/HCPCS: 94618